=== PATIENT | female | born 1965 | race Caucasian/White ===

== ENCOUNTER 2020-03-09 23:46 | Emergency (ER) | payer SELFPAY ==
[2020-03-09 23:51] VITALS: BP 110/87; PULSE 106; RESP 18; TEMP 36.6; O2SAT 97; BMI 18.8
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
[2020-03-10 00:43] VITALS: BP 128/77; PULSE 96; RESP 18; O2SAT 98
[2020-03-10 02:07] VITALS: BP 111/77; PULSE 96; RESP 18; O2SAT 98
== END 2020-03-10 02:09 | disposition home or self-care (01) ==
PROVIDERS: Emergency Provider Physician Assistant
DX: M54.5 Low back pain (principal); S16.1XXA Strain of muscle, fascia and tendon at neck level, initial encounter; M25.552 Pain in left hip; V89.2XXA Person injured in unspecified motor-vehicle accident, traffic, initial encounter
CPT/HCPCS: 12345; 72125; 72131; 73502; 99282; 99283

== ENCOUNTER → 2021-05-14 11:29 | Outpatient (BNVA) | payer SELFPAY | PROVIDERS: Visit Provider Nurse Practitioner Family | DX: Z20.822 Contact with and (suspected) exposure to COVID-19 (principal) | CPT/HCPCS: 87635 ==

== ENCOUNTER → 2021-06-03 16:13 | Outpatient (BNVA) | payer SELFPAY | PROVIDERS: Visit Provider Registered Nurse Neonatal Intensive Care | DX: N39.0 Urinary tract infection, site not specified (principal); K21.9 Gastro-esophageal reflux disease without esophagitis | CPT/HCPCS: 81000 ==

== ENCOUNTER 2021-11-29 21:37 | Emergency (ER) | payer MEDICAID, SELFPAY ==
--- NOTE | 2021-11-29 21:39 | XRR_ITS ---
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 Views: 2 or more views. COMPARISON: CT cervical spin wo con* [id number] 03/10/2020 1:26 AM FINDINGS: Bones/joints: Normal. Soft tissues: Normal. XR/XR shoulder RT min 2V* [id number] IMPRESSION: No acute findings.
[2021-11-29 21:54] VITALS: BP 142/91; PULSE 92; RESP 20; TEMP 37.1; O2SAT 97; BMI 21.0
--- NOTE | 2021-11-29 22:10 | ED_ITS ---
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 States that painful over her trapezius muscles states that painful to lift or move that arm. States it is improved with rest states pain is currently 5 out of 10 denies any specific injury or fall. Associated symptoms: Deny chest pain, fever(s) or rash Review of Systems Const: Denies: fever(s), chills, body aches or change in appetite Eyes: Denies: blurry vision or eye discomfort ENMT: Denies: throat pain or dental pain Card: Denies: chest pain Resp: Denies: dyspnea GI: Denies: abdominal pain, nausea, vomiting or diarrhea : Denies: dysuria Musc: Reports: extremity pain Skin/Breast: Denies: rash Neuro: Denies: headache(s) Psych: Denies: depression Will/Lymph: Denies: easy bruising All/Imm: Denies: urticaria PFSH ED PFSH: Medical History No pertinent past medical history Social History Smoking and tobacco status: current every day smoker cigarettes Physical Exam Const: COMMON NORMALS: no acute distress, patient oriented x3 and healthy appearing HENMT: COMMON NORMALS: normocephalic and atraumatic HEAD & SCALP: normocephalic and atraumatic Eye: COMMON NORMALS: Equal, round and reactive pupils present and EOMs intact bilaterally PUPIL: Yes Equal, round and reactive pupils present Neck/C-Spine: COMMON NORMALS: full ROM and supple Chest: COMMONS NORMALS: normal inspection of the chest and normal palpation of entire chest wall Resp: COMMON NORMALS: normal respiratory effort, No retractions, No use of accessory muscles and clear to auscultation bilaterally AUSCULTATION: clear to auscultation bilaterally Cardio: COMMON NORMALS: regular rate, regular rhythm and No murmurs present (Cardio) RATE: regular rate RHYTHM: regular rhythm GI: COMMON NORMALS: Normal to inspection, nondistended, normoactive bowel sounds present, Soft to palpation, non-tender and no masses PALPATION: Yes Soft to palpation Extremity: COMMON NORMALS: normal to inspection and full ROM NARRATIVE EXTREMITY EXAM: Tenderness over right trapezius and rhomboid she has pain with range of motion to her right arm distal pulses sensation intact Neuro: COMMON NORMALS: patient oriented x3, moves all extremities and no focal motor deficits Psych: COMMON NORMALS: mental status grossly normal, Normal thought process present and cooperative THOUGHT PROCESS: Normal thought process present Skin: COMMON NORMALS: no rashes or lesions noted and no wounds GENERAL SKIN EXAM: no rashes or lesions noted Course Vital Signs: Vital signs: Vital Signs Temperature 98.8 F 11/29/21 21:54 Pulse Rate 92 11/29/21 21:54 Respiratory Rate 20 H 11/29/21 21:54 Blood Pressure 142/91 11/29/21 21:54 Pulse Oximetry 97 11/29/21 21:54 MDM - Extremity (Nontraumatic) Medical Decision Making Patient presents with right shoulder pain she has tenderness over her trapezius and rhomboid muscles likely a muscle strain from lifting she is have no heavy lifting for a week we will place her on Naprosyn and Robaxin she is to ice as well. She is stable for discharge return if worsening. Discharge Plan Discharge Patient Disposition: Home Clinical Impression: Acute pain of right shoulder Condition: Stable Prescriptions: New methocarbamol 750 mg tablet 750 mg PO Q6H PRN (Reason: spasms) Qty: 20 0RF Naprosyn 500 mg tablet 500 mg PO BID PRN (Reason: pain) Qty: 20 0RF No Action nitrofurantoin monohyd/m-cryst [Macrobid] 100 mg capsule 100 mg PO BID 5 Days Qty: 10 0RF Rx Instructions: must administer with a meal/food Discharge Orders: Discharge ED (Routine); Ordered 11/29/21 Ordered By: Devin Maki Discharge Diet: Advance as tolerated Discharge Activity: Resume usual activity Patient Instructions: Shoulder Pain (ED) Coding Level of Care Code ED [employer] Guide for Libra Lange
[2021-11-29] MEDS: HYDROcodone-acetaminophen 7.5-325 mg Tablet 1 TAB PO (22:13)
[2021-11-29 22:20] VITALS: RESP 16
== END 2021-11-29 22:20 | disposition home or self-care (01) ==
PROVIDERS: Emergency Provider Emergency Medicine
DX: M25.511 Pain in right shoulder (principal); F17.210 Nicotine dependence, cigarettes, uncomplicated
CPT/HCPCS: 73030; 99283

== ENCOUNTER 2022-06-18 13:46 | Emergency (ER) | payer MEDICAID, SELFPAY ==
[2022-06-18 14:00] VITALS: BP 147/90; PULSE 88; RESP 18; TEMP 36.8; O2SAT 97; BMI 19.3
--- NOTE | 2022-06-18 14:24 | ED_ITS ---
HPI - Abdominal Pain General: Chief Complaint: Abdominal Pain Stated Complaint: Abd/Back Pain Time Seen by Provider: 06/18/22 14:09 Source: patient Mode of arrival: ambulatory History of Present Illness: 56-year-old female presents to the emergency room with complaint of left lower quadrant abdominal pain she describes it as burning and radiating into her buttock. She has vomited once or twice she denies any medic easier melena she denies any diarrhea. She is complaining of a temp up to 101 102 yesterday based off of the forehead thermal scanner. She has previously had a tubal ligation no other abdominal surgeries. No dysuria urgency or frequency or hematuria. MD elicited complaint: abdominal pain Pertinent past history: none Onset (ago): day(s) Pain Consistency: constant Location: LLQ Severity: moderate Quality: cramping Radiation: none Exacerbating factors: nothing Relieving factors: nothing Associated Symptoms: Reports GI cramping, nausea and vomiting; Denies belching, bloating, change in bowel habits, change in stool character, chills, coffee ground emesis, constipation, diarrhea, dyspepsia, dysuria, excessive flatus, fever(s), heartburn, hematochezia, hematuria, hematemesis, fecal incontinence, loose stools, melena, poor appetite and syncope Review of Systems Const: Denies: fever(s), chills, fatigue or malaise ENMT: Denies: throat pain, ear or mastoid pain, nasal discharge or nasal congestion Card: Denies: chest pain, palpitations, irregular heart rhythm or syncope Resp: Denies: dyspnea, productive cough or non-productive cough GI: Reports: abdominal pain, nausea, vomiting and GI cramping; Denies: hematemesis, coffee ground emesis, heartburn, diarrhea, constipation, bloating, belching, excessive flatus, fecal incontinence, change in bowel habits, change in stool character, hematochezia or melena : Denies: flank pain, difficulty voiding, dysuria, urinary frequency, urinary urgency or hematuria Skin/Breast: Denies: rash or pruritus PFS ED PFSH: Medical History (Updated 06/18/22 @ 16:39 by Conrad Brownlee DO) No pertinent past medical history Surgical History (Updated 06/18/22 @ 14:41 by Conrad Brownlee DO) H/O tubal ligation Social History Smoking and tobacco status: current every day smoker cigarettes Physical Exam Const: GENERAL APPEARANCE: cooperative and comfortable ORIENTATION/CONSCIOUSNESS: Yes awake, Yes oriented to person, Yes oriented to place and Yes oriented to time HENMT: COMMON NORMALS: normocephalic, atraumatic and hearing grossly normal bilaterally HEAD & SCALP: normocephalic and atraumatic Resp: COMMON NORMALS: normal respiratory effort, No retractions, No use of accessory muscles and clear to auscultation bilaterally AUSCULTATION: clear to auscultation bilaterally Cardio: COMMON NORMALS: regular rate, regular rhythm and No murmurs present (Cardio) RATE: regular rate RHYTHM: regular rhythm GI: COMMON NORMALS: Soft to palpation and No hepatosplenomegaly present AUSCULTATION: Yes normoactive bowel sounds PALPATION: Yes Soft to palpation, No Tenderness to palpation present (GI), No Guarding due to palpation present (GI) and Yes No hepatosplenomegaly present OTHER: Cutaneous hyperesthesia in the left lower quadrant. Extremity: COMMON NORMALS: normal to inspection, capillary refill normal, no clubbing, cyanosis or edema, no calf tenderness and no pedal edema Neuro: SENSORIUM/ORIENTATION: Yes oriented to person, Yes oriented to place a nd Yes oriented to time OTHER: Straight leg raising equivocal on the left. Skin: COMMON NORMALS: no rashes or lesions noted GENERAL SKIN EXAM: no rashes or lesions noted Course Vital Signs: Vital signs: Vital Signs Temperature 98.3 F 06/18/22 15:22 Pulse Rate 88 06/18/22 15:22 Respiratory Rate 18 06/18/22 15:22 Blood Pressure 147/90 06/18/22 15:22 Pulse Oximetry 97 06/18/22 15:22 Oxygen Delivery Me thod 06/18/22 15:22 MDM - Abdominal Pain Medical Decision Making Patient is a mild cystitis with a normal white count. She does not really have any symptoms of diverticulitis. She does have cystitis but I do not believe is causing the degree of symptoms she is describing. Suspect that she has some sciatica which is causing the burning sensation radiating into the buttock and down the leg and across the lower abdomen and into the groin region. We will start her on prednisone taper diclofenac and Anjel have her follow-up with her primary care doctor. If symptoms or not improving she may need further evaluation. Medical Records I reviewed the patient's medical records. Lab Data I reviewed the patient's lab results. : 06/18/22 14:35 06/18/22 14:35 Labs/Radiology: Laboratory Results WBC 9.4 10^3/uL (4.0-10.0) 06/18/22 14:35 RBC 4.97 10^6/uL (4.1-5.3) 06/18/22 14:35 Hgb 15.3 g/dL (11.5-15.3) 06/18/22 14:35 Hct 46.2 % (37.0-47.0) 06/18/22 14:35 MCV 93.0 fl (81-99) 06/18/22 14:35 MCH 30.8 pg (28.0-34.0) 06/18/22 14:35 MCHC 33.1 g/dL (30.0-36.0) 06/18/22 14:35 RDW 12.3 % (12.1-15.1) 06/18/22 14:35 Plt Count 268 10^3/cmm (130-400) 06/18/22 14:35 MPV 9.6 fL (7.4-10.4) 06/18/22 14:35 Neut % (Auto) 68.2 % 06/18/22 14:35 Lymph % (Auto) 24.5 % 06/18/22 14:35 Schley % (Auto) 4.5 % 06/18/22 14:35 Eos % (Auto) 1.3 % 06/18/22 14:35 Baso % (Auto) 1.1 % 06/18/22 14:35 Neut # (Auto) 6.39 10^3/uL (1.8-7.7) 06/18/22 14:35 Lymph # (Auto) 2.3 10^3/uL (0.8-4.8) 06/18/22 14:35 Schley # (Auto) 0.4 10^3/uL (0.2-0.9) 06/18/22 14:35 Eos # (Auto) 0.1 10^3/uL (0.0-0.8) 06/18/22 14:35 Baso # (Auto) 0.1 10^3/uL (0.0-0.1) 06/18/22 14:35 Nucleated RBC % (auto) 0 % 06/18/22 14:35 Nucleated RBCs # 0.0 /100WBC 06/18/22 14:35 Sodium 141 mmol/L (136-145) 06/18/22 14:35 Potassium 3.8 mmol/L (3.5-5.1) 06/18/22 14:35 Chloride 104 mmol/L (98-107) 06/18/22 14:35 Carbon Dioxide 26 mmol/L (22-29) 06/18/22 14:35 Anion Gap 14.8 (5-19) 06/18/22 14:35 BUN 16 mg/dL (6-20) 06/18/22 14:35 Creatinine 0.6 mg/dL (0.5-0.9) 06/18/22 14:35 GFR Calculation 103.0 mL/min (90-130) 06/18/22 14:35 Glucose 89 mg/dL (65-115) 06/18/22 14:35 Calculated Osmolality 293 mOsm/kg (285-295) 06/18/22 14:35 Calcium 9.7 mg/dL (8.5-10.5) 06/18/22 14:35 Total Bilirubin 0.2 mg/dL (0.15-1.2) 06/18/22 14:35 AST 14 U/L (0-32) 06/18/22 14:35 ALT 9 U/L (0-33) 06/18/22 14:35 Alkaline Phosphatase 80 U/L (35-105) 06/18/22 14:35 Total Protein 7.3 g/dL (6.6-8.7) 06/18/22 14:35 Albumin 4.7 g/dL (3.5-5.2) 06/18/22 14:35 Globulin 2.6 g/dL (1.3-4.6) 06/18/22 14:35 Lipase 23 U/L (13-60) 06/18/22 14:35 Urine Color Yellow (Yellow) 06/18/22 14:39 Urine Appearance Clear (CLEAR) 06/18/22 14:39 Urine pH 5 (5-7) 06/18/22 14:39 Ur Specific [place] 1.015 (1.005-1.030) 06/18/22 14:39 Urine Protein Neg (Negative) 06/18/22 14:39 Urine Glucose (UA) Norm (Normal) 06/18/22 14:39 Urine Ketones Negative (Negative) 06/18/22 14:39 Urine Blood 2+ (Negative) H 06/18/22 14:39 Urine Nitrate Negative (Negative) 06/18/22 14:39 Urine Bilirubin Neg (Negative) 06/18/22 14:39 Urine Urobilinogen Neg mg/dL (Negative) 06/18/22 14:39 Ur Leukocyte Esterase 1+ (Negative) H 06/18/22 14:39 Urine RBC 0-4 /hpf (0-2) H 06/18/22 14:39 Urine WBC 5-10 /hpf (0-5) H 06/18/22 14:39 Ur Squamous Epith Cells 0-4 /hpf (0-5) H 06/18/22 14:39 Amorphous Sediment Not Reportable 06/18/22 14:39 Urine Bacteria 2+ /hpf (NONE) H 06/18/22 14:39 Urine Mucus 2+ /hpf 06/18/22 14:39 Discharge Plan Discharge Patient Disposition: Home Clinical Impression: Sciatica, Cystitis Condition: Stable Prescriptions: New prednisone 20 mg tablet 20 mg PO TID Qty: 15 0RF Rx Instructions: 1 p.o. 3 times daily x3 days, 1 p.o. twice daily x2 days, 1 p.o. daily x2 days diclofenac sodium 75 mg tablet,delayed release (DR/EC) 75 mg PO Q12H PRN (Reason: pain) Qty: 20 0RF Lyrica 75 mg capsule 75 mg PO BID Qty: 60 0RF Bactrim DS 800-160 mg tablet 1 tab PO BID 5 Days Qty: 10 0RF No Action BC Pain Relief 845-65 mg Powder In Packet 1 ea PO Q6H Discharge Orders: Discharge ED (Routine); Ordered 06/18/22 Ordered By: Conrad Brownlee Discharge Diet: Usual diet Discharge Activity: Increase activity as tolerated Patient Instructions: Opioid Safety, Pain Management Activity Restrictions/Additional Instructions: Follow-up with your primary care doctor as soon as you are able. If symptoms or not improving you may need further evaluation. Coding Level of Care Code ED Retail Brand Ambassador for Chg Fwd Exam Detailed
[2022-06-18 14:40] LABS: Basophils # 0.1 10^3/uL (0.0-0.1); Basophils % 1.1 %; Eosinophils # 0.1 10^3/uL (0.0-0.8); Eosinophils % 1.3 %; Hematocrit 46.2 % (37.0-47.0); Hemoglobin 15.3 g/dL (11.5-15.3); Lymphocytes # 2.3 10^3/uL (0.8-4.8); Lymphocytes % 24.5 %; Mean Corpuscular HGB Conc 33.1 g/dL (30.0-36.0); Mean Corpuscular Hemoglobin 30.8 pg (28.0-34.0); Mean Platelet Volume 9.6 fL (7.4-10.4); Monocytes # 0.4 10^3/uL (0.2-0.9); Monocytes % 4.5 %; Neutrophils # 6.39 10^3/uL (1.8-7.7); Neutrophils % 68.2 %; Nucleated Red Blood Cells % 0 %; Platelet Count 268 10^3/cmm (130-400); Red Blood Count 4.97 10^6/uL (4.1-5.3); Red Cell Distribution Width 12.3 % (12.1-15.1); White Blood Count 9.4 10^3/uL (4.0-10.0)
[2022-06-18] MEDS: dexamethasone 4 mg Tablet 10 MG PO (14:58)
[2022-06-18] MEDS: ketorolac 30 mg/mL INJ IVP (15:01)
[2022-06-18] MEDS: orphenadrine 30 mg/mL Inj 2 mL 60 MG IVP (15:02)
[2022-06-18 15:05] LABS: Alanine Aminotransferase 9 U/L (0-33); Albumin Level 4.7 g/dL (3.5-5.2); Alkaline Phosphatase 80 U/L (35-105); Anion Gap 14.8 (5-19); Aspartate Amino Transferase 14 U/L (0-32); Blood Urea Nitrogen 16 mg/dL (6-20); Calcium 9.7 mg/dL (8.5-10.5); Carbon Dioxide 26 mmol/L (22-29); Chloride 104 mmol/L (98-107); Globulin 2.6 g/dL (1.3-4.6); Glucose 89 mg/dL (65-115); Lipase 23 U/L (13-60); Osmolality Calculated 293 mOsm/kg (285-295); Potassium 3.8 mmol/L (3.5-5.1); Sodium 141 mmol/L (136-145); Total Bilirubin 0.2 mg/dL (0.15-1.2); Total Protein 7.3 g/dL (6.6-8.7)
[2022-06-18 15:22] VITALS: BP 147/90; PULSE 88; RESP 18; TEMP 36.8; O2SAT 97
[2022-06-18 16:12] LABS: Bilirubin Urine Neg (Negative); Blood Urine 2+ (Negative); Glucose Urine UA Norm (Normal); Ketones Urine Negative (Negative); Nitrate Urine Negative (Negative); Protein Urine Neg (Negative); Specific Gravity, Urine 1.015 (1.005-1.030); Urine Appearance Clear (CLEAR); Urine Color Yellow (Yellow); pH Urine 5 (5-7)
[2022-06-18 16:13] LABS: Add Urine Microscopic? YES; Leukocyte Esterase Urine 1+ (Negative); Urobilinogen Urine Neg (Negative)
[2022-06-18 16:29] LABS: RBC Urine 0-4 /hpf (0-2)
[2022-06-18 16:30] LABS: Add Urine Culture? Yes; Bacteria Urine 2+ /hpf; Mucus Urine 2+ /hpf; Squamous Epithelial Cell Urine 0-4 /hpf (0-5)
[2022-06-18 16:51] VITALS: BP 147/90; PULSE 88; RESP 18; TEMP 36.8; O2SAT 97
== END 2022-06-18 16:52 | disposition home or self-care (01) ==
PROVIDERS: Emergency Medicine; Emergency Provider Family Medicine
DX: N30.90 Cystitis, unspecified without hematuria (principal); M54.30 Sciatica, unspecified side; F17.210 Nicotine dependence, cigarettes, uncomplicated
CPT/HCPCS: 80053; 81001; 83690; 85025; 87077; 87086; 87186; 96374; 96375; 99284; J1885; J2360; J8540

== ENCOUNTER 2022-06-18 18:54 | Emergency (ER) | payer MEDICAID, SELFPAY ==
[2022-06-18 18:59] VITALS: BP 160/91; PULSE 115; RESP 30; O2SAT 98; BMI 19.9
--- NOTE | 2022-06-18 19:23 | CTR_ITS ---
PROCEDURE INFORMATION: Exam: CT Head Without Contrast Exam date and time: 06/18/2022 7:59 PM Age: 56 years old Clinical indication: Syncope and collapse TECHNIQUE: Imaging protocol: Computed tomography of the head without contrast. Radiation optimization: All CT scans at this facility use at least one of these dose optimization techniques: automated exposure control; mA and/or kV adjustment per patient size (includes targeted exams where dose is matched to clinical indication); or iterative reconstruction. COMPARISON: CT head wo con* [id number] 11/17/2016 5:31 AM RADIATION DOSE METRICS: Total DLP (mGy-cm): 1072.14 FINDINGS: Brain: Normal. No hemorrhage. Unremarkable white matter. No mass effect. Cerebral ventricles: No ventriculomegaly. Paranasal sinuses: Visualized sinuses are unremarkable. No fluid levels. Mastoid air cells: Visualized mastoid air cells are well aerated. Bones/joints: Unremarkable. No acute fracture. Soft tissues: Unremarkable. CT/CT head wo con* [id number] IMPRESSION: No acute intracranial abnormality.
--- NOTE | 2022-06-18 19:23 | XRR_ITS ---
PROCEDURE INFORMATION: Exam: XR Chest Exam date and time: 06/18/2022 7:33 PM Age: 56 years old Clinical indication: Other: Syncope; Additional info: Syncope and left leg pain TECHNIQUE: Imaging protocol: Radiologic exam of the chest. Views: 1 view. COMPARISON: CR XR shoulder RT min 2V* [id number] 11/29/2021 9:54 PM FINDINGS: Lungs: See Heart/Mediastinum finding. Pleural spaces: Unremarkable. No pleural effusion. No pneumothorax. Heart/Mediastinum: Calcified mediastinal lymph nodes along with a left mid lung field calcified granuloma. Bones/joints: Unremarkable. XR/XR chest 1V portable [id number] IMPRESSION: Negative for infiltrate
--- NOTE | 2022-06-18 19:23 | CTR_ITS ---
PROCEDURE INFORMATION: Exam: CT Lumbar Spine Without Contrast Exam date and time: 06/18/2022 8:06 PM Age: 56 years old Clinical indication: Low back pain; Additional info: Lumbar radiculopathy, llq pain TECHNIQUE: Imaging protocol: Computed tomography of the lumbar spine without contrast. Radiation optimization: All CT scans at this facility use at least one of these dose optimization techniques: automated exposure control; mA and/or kV adjustment per patient size (includes targeted exams where dose is matched to clinical indication); or iterative reconstruction. COMPARISON: CT lumbar spine wo con* [id number] 03/10/2020 1:31 AM RADIATION DOSE METRICS: Total DLP (mGy-cm): 365.22 FINDINGS: Bones/joints: See L4-L5 finding. L1-L2: No significant disc protrusion. No severe spinal canal stenosis. No significant neural foraminal narrowing. L2-L3: No significant disc protrusion. No severe spinal canal stenosis. No significant neural foraminal narrowing. L3-L4: No significant disc protrusion. No severe spinal canal stenosis. No significant neural foraminal narrowing. L4-L5: L4-L5 broad-based disc bulge with mild spinal canal and [id number] bilateral foraminal narrowing, similar to prior exam. L5-S1: No significant disc protrusion. No severe spinal canal stenosis. No significant neural foraminal narrowing. Lungs: Bibasilar atelectasis. Gallbladder and bile ducts: Cholelithiasis. Soft tissues: Sigmoid colon diverticulosis with a small amount of edema seen about a diverticula in the mid sigmoid colon, series 5, image 151, please correlate for possible diverticulitis. CT/CT lumbar spine wo con* [id number] IMPRESSION: 1. L4-L5 broad-based disc bulge with mild spinal canal and rqhh-[id number] bilateral foraminal narrowing, similar to prior exam. 2. Cholelithiasis. 3. Bibasilar atelectasis. 4. Sigmoid colon diverticulosis with a small amount of edema seen about a diverticula in the mid sigmoid colon, series 5, image 151, please correlate for possible diverticulitis.
--- NOTE | 2022-06-18 19:23 | CTR_ITS ---
PROCEDURE INFORMATION: Exam: CT Abdomen And Pelvis With Contrast Exam date and time: 06/18/2022 8:09 PM Age: 56 years old Clinical indication: Abdominal pain; Additional info: Llq pain TECHNIQUE: Imaging protocol: Computed tomography of the abdomen and pelvis with contrast. Radiation optimization: All CT scans at this facility use at least one of these dose optimization techniques: automated exposure control; mA and/or kV adjustment per patient size (includes targeted exams where dose is matched to clinical indication); or iterative reconstruction. Contrast material: OMNIPAQUE 350; Contrast volume: 100 ml; Contrast route: INTRAVENOUS (IV); COMPARISON: CR XR hip LT 2-3V wo/w pel* [id number] 03/10/2020 1:14 AM RADIATION DOSE METRICS: Total DLP (mGy-cm): 304.29 FINDINGS: Liver: Normal. No mass. Gallbladder and bile ducts: Cholelithiasis. Pancreas: Normal. No ductal dilation. Spleen: Normal. No splenomegaly. Adrenal glands: Normal. No mass. Kidneys and ureters: Kidneys appears somewhat heterogeneous bilaterally, likely due to contrast bolus timing, please correlate for possible pyelonephritis. Stomach and bowel: Minimal edema seen about the mid sigmoid colon diverticula, suggestive of a mild diverticulitis in the appropriate clinical setting Appendix: No evidence of appendicitis. Intraperitoneal space: Unremarkable. No free air. No significant fluid collection. Vasculature: Unremarkable. No abdominal aortic aneurysm. Lymph nodes: Unremarkable. No enlarged lymph nodes. Urinary bladder: Unremarkable as visualized. Reproductive: Unremarkable as visualized. Bones/joints: Unremarkable. No acute fracture. Soft tissues: Unremarkable. CT/CT abdomen pelvis w con* [id number] IMPRESSION: 1. Minimal edema seen about the mid sigmoid colon diverticula, suggestive of a mild diverticulitis in the appropriate clinical setting 2. Kidneys appears somewhat heterogeneous bilaterally, likely due to contrast bolus timing, please correlate for possible pyelonephritis. 3. Cholelithiasis.
--- NOTE | 2022-06-18 19:27 | ECG_ITS ---
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 Measurements Intervals [place] Rate: 112 P: 68 WV: 160 QRS: 77 QRSD: 72 T: 63 QT: 337 QTc: 461 Interpretive Statements SINUS TACHYCARDIA POSSIBLE LEFT ATRIAL ENLARGEMENT [-0.1mV P-WAVE IN V1/V2] MODERATE ST DEPRESSION [0.05+ mV ST DEPRESSION] No previous ECG available for comparison Electronically Signed On 06-19-2022 10:53:02 CDT by Angelic Cardoso M.D. [id number] f
--- NOTE | 2022-06-18 19:28 | W.ED.SYNCOPE ---
HPI - Syncope General: Chief Complaint: Syncope Stated Complaint: syncope, left leg pain Time Seen by Provider: 06/18/22 19:04 Source: patient and family History of Present Illness: 56-year-old female was here earlier with left lower quadrant pain diagnosed with cystitis. She presents for 2-3 episodes of syncope at home. Daughter notes that she went unresponsive for a few minutes at home. Patient does not remember that event. No seizure activity. She is awake and alert now. She still complaining of significant left lower quadrant pain and low back pain. Low back pain is radicular down the posterior left lower extremity. No weakness. No numbness to the groin MD complaint: loss of consciousness Onset (ago): minute(s) -: minutes(s) Prodromal symptoms: none Associated symptoms: Reports abdominal pain, lightheadedness, nausea and weakness (Generalized); Deny chest pain, fever(s), headache(s) or short of breath Treatments prior to arrival: none Review of Systems Const: Denies: fever(s) Card: Reports: lightheadedness; Denies: chest pain Resp: Denies: dyspnea GI: Reports: abdominal pain, nausea and vomiting (Yesterday) Neuro: Denies: headache(s) PFSH ED PFSH: Medical History No pertinent past medical history Surgical History H/O tubal ligation Social History Smoking and tobacco status: current every day smoker cigarettes Physical Exam Const: COMMON NORMALS: no acute distress GENERAL APPEARANCE: cooperative, ill appearing and frail appearing NUTRITIONAL APPEARANCE: thin HENMT: COMMON NORMALS: normocephalic and Normal external nose present HEAD & SCALP: normocephalic FACE & SINUS: normal facial exam and face symmetric NOSE: Normal external nose present Eye: COMMON NORMALS: Equal, round and reactive pupils present and EOMs intact bilaterally PUPIL: Yes Equal, round and reactive pupils present Neck/C-Spine: GENERAL: Yes trachea midline Chest: CHEST: Yes Symmetrical chest wall rise Resp: COMMON NORMALS: normal respiratory effort, No retractions, No use of accessory muscles and clear to auscultation bilaterally AUSCULTATION: clear to auscultation bilaterally Cardio: COMMON NORMALS: regular rate and regular rhythm RATE: regular rate RHYTHM: regular rhythm GI: COMMON NORMALS: Normal to inspection, nondistended, normoactive bowel sounds present and Soft to palpation PALPATION: Yes Soft to palpation and Yes Tenderness to palpation present (GI) Details: LLQ : BLADDER/KIDNEY EXAM: Yes CVA tenderness on the left Back/Pelvis: GENERAL BACK: Yes CVA tenderness Extremity: COMMON NORMALS: no pedal edema Neuro: ÁNGELA COMA SCALE: document GCS findings Ángela coma scale eye opening: Spontaneous Ángela coma scale verbal response: Orientated [place] coma scale motor response: Obey commands [place] coma scale total score: 15 SENSORY EXAM: Yes extremities (intact) Psych: COMMON NORMALS: speech normal SPEECH: Yes normal speech Skin: COMMON NORMALS: no rashes or lesions noted GENERAL SKIN EXAM: no rashes or lesions noted Course Vital Signs: Vital signs: Vital Signs Pulse Rate 97 06/18/22 21:57 Respiratory Rate 18 06/18/22 21:57 Blood Pressure 131/90 06/18/22 21:57 Pulse Oximetry 97 06/18/22 21:57 Oxygen Delivery Me thod 06/18/22 18:59 MDM - Syncope Medical Decision Making White blood cell count is 7.4. Hemoglobin is 15.5. BMP is unremarkable. CT of the abdomen pelvis shows mild diverticulitis of the left lower quadrant responsible for pain. CT of the head is negative. Cardiac work-up is negative. I believe she likely has syncopal episode due to the amount of pain she was in. She has not been vomiting. Counseled family on diagnosis. She will go home on antibiotics to cover diverticulitis, pain and nausea medication. She knows to return if worsening. Lab Data : 06/18/22 18:41 06/18/22 18:41 Radiology Impressions Abdomen/Pelvis CT 06/18/22 19:23 IMPRESSION: 1. Minimal edema seen about the mid sigmoid colon diverticula, suggestive of a mild diverticulitis in the appropriate clinical setting 2. Kidneys appears somewhat heterogeneous bilaterally, likely due to contrast bolus timing, please correlate for possible pyelonephritis. 3. Cholelithiasis. Chest X-Ray 06/18/22 19:23 IMPRESSION: Negative for infiltrate Head CT 06/18/22 19:23 IMPRESSION: No acute intracranial abnormality. Lumbar Spine CT 06/18/22 19:23 IMPRESSION: 1. L4-L5 broad-based disc bulge with mild spinal canal and awss-[id number] bilateral foraminal narrowing, similar to prior exam. 2. Cholelithiasis. 3. Bibasilar atelectasis. 4. Sigmoid colon diverticulosis with a small amount of edema seen about a diverticula in the mid sigmoid colon, series 5, image 151, please correlate for possible diverticulitis. Laboratory Results WBC 7.4 10^3/uL (4.0-10.0) 06/18/22 18:41 RBC 5.11 10^6/uL (4.1-5.3) 06/18/22 18:41 Hgb 15.5 g/dL (11.5-15.3) H 06/18/22 18:41 Hct 46.6 % (37.0-47.0) 06/18/22 18:41 MCV 91.2 fl (81-99) 06/18/22 18:41 MCH 30.3 pg (28.0-34.0) 06/18/22 18:41 MCHC 33.3 g/dL (30.0-36.0) 06/18/22 18:41 RDW 12.2 % (12.1-15.1) 06/18/22 18:41 Plt Count 282 10^3/cmm (130-400) 06/18/22 18:41 MPV 10.4 fL (7.4-10.4) 06/18/22 18:41 Neut % (Auto) 83.4 % 06/18/22 18:41 Lymph % (Auto) 15.0 % 06/18/22 18:41 [place] % (Auto) 0.7 % 06/18/22 18:41 Eos % (Auto) 0.1 % 06/18/22 18:41 Baso % (Auto) 0.5 % 06/18/22 18:41 Neut # (Auto) 6.16 10^3/uL (1.8-7.7) 06/18/22 18:41 Lymph # (Auto) 1.1 10^3/uL (0.8-4.8) 06/18/22 18:41 [place] # (Auto) 0.1 10^3/uL (0.2-0.9) L 06/18/22 18:41 Eos # (Auto) 0.0 10^3/uL (0.0-0.8) 06/18/22 18:41 Baso # (Auto) 0.0 10^3/uL (0.0-0.1) 06/18/22 18:41 Nucleated RBC % (auto) 0 % 06/18/22 18:41 Nucleated RBCs # 0.0 /100WBC 06/18/22 18:41 Sodium 139 mmol/L (136-145) 06/18/22 18:41 Potassium 3.6 mmol/L (3.5-5.1) 06/18/22 18:41 Chloride 103 mmol/L (98-107) 06/18/22 18:41 Carbon Dioxide 22 mmol/L (22-29) 06/18/22 18:41 Anion Gap 17.6 (5-19) 06/18/22 18:41 BUN 16 mg/dL (6-20) 06/18/22 18:41 Creatinine 0.7 mg/dL (0.5-0.9) 06/18/22 18:41 GFR Calculation 86.2 mL/min (90-130) L 06/18/22 18:41 Glucose 200 mg/dL (65-115) H 06/18/22 18:41 Calculated Osmolality 295 mOsm/kg (285-295) 06/18/22 18:41 Calcium 10.0 mg/dL (8.5-10.5) 06/18/22 18:41 Magnesium 1.8 mg/dL (1.7-2.3) 06/18/22 18:41 Total Bilirubin 0.2 mg/dL (0.15-1.2) 06/18/22 18:41 AST 12 U/L (0-32) 06/18/22 18:41 ALT 7 U/L (0-33) 06/18/22 18:41 Alkaline Phosphatase 78 U/L (35-105) 06/18/22 18:41 Troponin T Baseline 6 ng/L (0-10) 06/18/22 18:41 Troponin T 120 Minute 6.00 ng/L (0-10) 06/18/22 20:25 Delta Troponin T 0 ABS# (0-10) 06/18/22 20:25 C-Reactive Protein 3.0 mg/L (0.0-4.9) 06/18/22 18:41 Total Protein 7.0 g/dL (6.6-8.7) 06/18/22 18:41 Albumin 4.6 g/dL (3.5-5.2) 06/18/22 18:41 Globulin 2.4 g/dL (1.3-4.6) 06/18/22 18:41 Urine Color Yellow (Yellow) 06/18/22 19:38 Urine Appearance Clear (CLEAR) 06/18/22 19:38 Urine pH 5 (5-7) 06/18/22 19:38 Ur Specific [place] 1.010 (1.005-1.030) 06/18/22 19:38 Urine Protein Neg (Negative) 06/18/22 19:38 Urine Glucose (UA) 1+ (Normal) H 06/18/22 19:38 Urine Ketones Negative (Negative) 06/18/22 19:38 Urine Blood 2+ (Negative) H 06/18/22 19:38 Urine Nitrate Negative (Negative) 06/18/22 19:38 Urine Bilirubin Neg (Negative) 06/18/22 19:38 Urine Urobilinogen Norm mg/dL (Negative) 06/18/22 19:38 Ur Leukocyte Esterase 1+ (Negative) H 06/18/22 19:38 Discharge Plan Discharge Patient Disposition: Home Clinical Impression: Diverticulitis, Acute left lumbar radiculopathy Condition: Stable Prescriptions: New oxycodone-acetaminophen 5-325 mg tablet 1 tab PO Q8H Qty: 10 0RF ciprofloxacin HCl 500 mg tablet 500 mg PO BID Qty: 14 0RF metronidazole 500 mg tablet 500 mg PO TID Qty: 21 0RF ondansetron 4 mg film 4 mg PO DAILY PRN (Reason: nausea and vomiting) Qty: 10 0RF Discontinued BC Pain Relief 845-65 mg Powder In Packet 1 ea PO Q6H prednisone 20 mg tablet 20 mg PO TID Qty: 15 0RF Rx Instructions: 1 p.o. 3 times daily x3 days, 1 p.o. twice daily x2 days, 1 p.o. daily x2 days diclofenac sodium 75 mg tablet,delayed release (DR/EC) 75 mg PO Q12H PRN (Reason: pain) Qty: 20 0RF sulfamethoxazole-trimethoprim [Bactrim DS] 800-160 mg tablet 1 tab PO BID 5 Days Qty: 10 0RF No Action Lyrica 75 mg capsule 75 mg PO BID Qty: 60 0RF Discharge Orders: Discharge ED (Routine); Ordered 06/18/22 Ordered By: Darshan Concepcion Discharge Diet: Clear Liquid Discharge Activity: Increase activity as tolerated Patient Instructions: Opioid Safety, Pain Management Activity Restrictions/Additional Instructions: Follow a clear liquid diet for the next 36 hours, then increase as tolerated. Pain medication for significant pain. Take nausea medication scheduled for the next 24 hours to help you keep your medication down. Antibiotics as directed. Return for worsening pain despite treatment, fever greater than 100 despite 2-3 doses of antibiotics, vomiting liquids or medications, repeated episodes of syncope or passing out, any other concerning symptoms. 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
[2022-06-18] MEDS: sodium chloride 0.9% 1,000 ML 999 ML IV (19:45)
[2022-06-18 19:52] LABS: Basophils % 0.5 %; Eosinophils % 0.1 %; Hematocrit 46.6 % (37.0-47.0); Hemoglobin 15.5 g/dL (11.5-15.3); Lymphocytes # 1.1 10^3/uL (0.8-4.8); Mean Corpuscular HGB Conc 33.3 g/dL (30.0-36.0); Mean Corpuscular Hemoglobin 30.3 pg (28.0-34.0); Mean Corpuscular Volume 91.2 fl (81-99); Mean Platelet Volume 10.4 fL (7.4-10.4); Monocytes # 0.1 10^3/uL (0.2-0.9); Monocytes % 0.7 %; Neutrophils # 6.16 10^3/uL (1.8-7.7); Neutrophils % 83.4 %; Nucleated Red Blood Cells % 0 %; Platelet Count 282 10^3/cmm (130-400); Red Blood Count 5.11 10^6/uL (4.1-5.3); Red Cell Distribution Width 12.2 % (12.1-15.1); White Blood Count 7.4 10^3/uL (4.0-10.0)
[2022-06-18 19:56] VITALS: BP 129/74; PULSE 94; RESP 21; O2SAT 95
[2022-06-18 19:58] LABS: Charge for UA Resulting for Rev
[2022-06-18] MEDS: iohexol 350 mg/mL 500 mL Btl (per mL) IV (19:58)
[2022-06-18 20:07] LABS: Alanine Aminotransferase 7 U/L (0-33); Albumin Level 4.6 g/dL (3.5-5.2); Alkaline Phosphatase 78 U/L (35-105); Anion Gap 17.6 (5-19); Aspartate Amino Transferase 12 U/L (0-32); Blood Urea Nitrogen 16 mg/dL (6-20); Carbon Dioxide 22 mmol/L (22-29); Chloride 103 mmol/L (98-107); Creatinine Clr Calc Pharmacy 69.7616; Globulin 2.4 g/dL (1.3-4.6); Glomerular Filtration Rate 86.2 mL/min (90-130); Glucose 200 mg/dL (65-115); Magnesium 1.8 mg/dL (1.7-2.3); Osmolality Calculated 295 mOsm/kg (285-295); Potassium 3.6 mmol/L (3.5-5.1); Sodium 139 mmol/L (136-145); Total Bilirubin 0.2 mg/dL (0.15-1.2)
[2022-06-18 20:09] LABS: Troponin(5th) Baseline 6 ng/L (0-10)
[2022-06-18 20:11] LABS: Urine Appearance Clear (CLEAR); Urine Color Yellow (Yellow); pH Urine 5 (5-7)
[2022-06-18 20:12] LABS: Add Urine Microscopic? YES; Bilirubin Urine Neg (Negative); Blood Urine 2+ (Negative); Glucose Urine UA 1+ (Normal); Ketones Urine Negative (Negative); Leukocyte Esterase Urine 1+ (Negative); Nitrate Urine Negative (Negative); Protein Urine Neg (Negative); Urobilinogen Urine Norm (Negative)
[2022-06-18] MEDS: ondansetron 2 mg/ML SDV 2 mL 4 MG IVP (20:23)
[2022-06-18 20:24] VITALS: RESP 17
[2022-06-18] MEDS: morphine 4 mg/mL SDV 1 mL IVP (20:24)
[2022-06-18 20:59] LABS: Troponin 5 2HR Delta 0 ABS# (0-10)
[2022-06-18 21:00] VITALS: BP 131/90; PULSE 99; RESP 19; O2SAT 95
--- NOTE | 2022-06-18 21:27 | ECG_ITS ---
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 Measurements Intervals [place] Rate: 95 P: 61 IA: 162 QRS: 69 QRSD: 72 T: 58 QT: 360 QTc: 454 Interpretive Statements SINUS RHYTHM Compared to ECG 06/18/2022 19:03:23 Sinus tachycardia no longer present ST (T wave) deviation no longer present Electronically Signed On 06-19-2022 10:56:16 CDT by Angelic Cardoso M.D. [id number]
[2022-06-18] MEDS: metroNIDAZOLE 500 MG Tablet PO (21:37)
[2022-06-18] MEDS: ciprofloxacin 500 mg Tablet PO (21:37)
[2022-06-18 21:57] VITALS: BP 131/90; PULSE 97; RESP 18; O2SAT 97
== END 2022-06-18 22:03 | disposition home or self-care (01) ==
PROVIDERS: Emergency Provider Emergency Medicine
DX: K57.92 Diverticulitis of intestine, part unspecified, without perforation or abscess without bleeding (principal); M54.16 Radiculopathy, lumbar region; F17.210 Nicotine dependence, cigarettes, uncomplicated
CPT/HCPCS: 70450; 71045; 72131; 74177; 80053; 81003; 83735; 84484; 85025; 86140; 93005; 96374; 96375; 99285; J2270; J2405; J7030; Q9967

== ENCOUNTER → 2024-04-26 16:31 | Outpatient (BNVA) | payer MEDICAID, SELFPAY | DX: R11.2 Nausea with vomiting, unspecified (principal) | CPT/HCPCS: 87400; 87426 ==

== ENCOUNTER 2024-08-13 16:09 | Emergency (ER) | payer SELFPAY ==
[2024-08-13] VITALS (9 sets, daily range): BP systolic 122–185; BP diastolic 82–105; PULSE 80–100; RESP 16–17; TEMP 36.7; O2SAT 94–98
--- NOTE | 2024-08-13 16:32 | XRR_ITS ---
PROCEDURE INFORMATION: Exam: XR Chest Exam date and time: 08/13/2024 4:39 PM Age: 59 years old Clinical indication: Pain; Chest pressure; Additional info: Chest pain TECHNIQUE: Imaging protocol: Radiologic exam of the chest. Views: 1 view. COMPARISON: CR XR chest 1V portable [id number] 06/18/2022 7:33 PM FINDINGS: Lungs: Increased lung volumes. No lobar consolidation. Pulmonary granulomas. Pleural spaces: Unremarkable. No pleural effusion. No pneumothorax. Heart/Mediastinum: Bilateral hilar calcified lymph nodes. Bones/joints: Unremarkable. XR/XR chest 1V portable [id number] IMPRESSION: As above.
--- NOTE | 2024-08-13 16:32 | ECG_ITS ---
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 Measurements Intervals [place] Rate: 97 P: 67 [place]: 136 QRS: 70 QRSD: 74 T: 58 QT: 355 QTc: 453 Interpretive Statements SINUS RHYTHM POSSIBLE LEFT ATRIAL ENLARGEMENT [-0.1mV P-WAVE IN V1/V2] SEPTAL MYOCARDIAL INFARCTION , OF INDETERMINATE AGE [40+ ms Q WAVE IN V1/V2] Compared to ECG 06/18/2022 21:22:18 Myocardial infarct finding now present Electronically Signed On 08-14-2024 17:46:11 CHILDREN'S COUNSELOR by Néstor Murphy M.D. [id number]
--- NOTE | 2024-08-13 16:32 | ED_ITS ---
Documented by User: AYE Leonardo 08/13/24 16:47 HPI - General Adult 2 General: Chief complaint: Headache Stated complaint: headache Time Seen by Provider: 08/13/24 16:26 Source: patient Mode of arrival: ambulatory Limitations: no limitations History of Present Illness: Patient is a 59-year-old female presents to ED today for medical evaluation. Patient states earlier today she began developing a headache. She states she took BC powder to try to help but it did not. Patient tells me she has no history of headaches although later tells me that she takes BC powder twice daily due to headaches. She states at some point today, when she began noticing her headache, she took her blood pressure and it was elevated with systolics up to 160s and diastolics in the low 100s. She has no history of hypertension. She arrives with a blood pressure 169/92 but later during my examination repeat blood pressure was 185/105. She states at some point today she developed a small amount of mid chest pain with radiation into the right arm. This is not present at time of my examination. She has no known history of cardiac disease. She reports she feels weak and shaky. She does not take any prescription medication. Onset (ago): hour(s) Location: head Severity: moderate Severity scale (1-10): 8 Pain Consistency: constant Relieving factors: none Exacerbating factors: none Associated symptoms: Reports chest pain (none currently) and headache(s); Deny confusion, malaise, nausea, rash, palpitations, syncope or vomiting Treatments prior to arrival: none Related Data Previous Rx's Medication Instructions Recorded cefdinir 300 mg capsule 300 mg PO BID 10 days #20 caps 08/13/24 lisinopril 10 mg tablet 10 mg PO BID #30 tabs 08/13/24 Allergies Allergy/AdvReac Type Severity Reaction Status Date / Time Penicillins Allergy ALGY-Rash Verified 04/26/24 16:26 Review of Systems 2 Const: Reports: other (reports feeling weak/shaky); Denies: fever(s), chills, body aches, fatigue or malaise Eyes: Reports: change in vision; Denies: photophobia, floaters or seeing flashes ENMT: Denies: throat pain, odynophagia, ear or mastoid pain, nasal discharge, nasal congestion or sinus pain Card: Reports: chest pain (none currently); Denies: palpitations, irregular heart rhythm, edema, swelling of feet/ankles, lightheadedness, syncope, pre-syncope, dyspnea on exertion, orthopnea, leg pain with exertion or acrocyanosis Resp: Denies: productive cough, non-productive cough, wheezing, pain on inspiration, hemoptysis or chest congestion GI: Denies: abdominal pain, nausea, vomiting or diarrhea : Denies: flank pain or dysuria Musc: Denies: neck pain, back pain, extremity pain, extremity swelling, joint pain or joint swelling Skin/Breast: Denies: rash Neuro: Reports: headache(s); Denies: numbness in extremities, weakness in extremities, sensory changes, lack of coordination, difficulty walking, frequent falls, dizziness, vertigo, confusion, behavioral changes, Slurred speech present, difficulty communicating thoughts or seizure-like activity PFSH ED 2 PFSH: Medical History Gastroenteritis GERD without esophagitis Surgical History H/O tubal ligation Social History Smoking and tobacco/nicotine status: current every day tobacco/nicotine user cigarettes Physical Exam 2 Const: COMMON NORMALS: no acute distress, average body habitus, patient oriented x3, no limitations, healthy appearing, alert and well nourished G ENERAL APPEARANCE: cooperative ORIENTATION/CONSCIOUSNESS: Yes awake, Yes oriented to person, Yes oriented to place and Yes oriented to time HENMT: COMMON NORMALS: normocephalic and atraumatic HEAD & SCALP: normal to inspection, normocephalic and atraumatic FACE & SINUS: normal facial exam, sinuses nontender and face symmetric Eye: COMMON NORMALS: Equal, round and reactive pupils present and EOMs intact bilaterally GENERAL EYE: appearance normal, both eyes and all related structures and normal light reflex PUPIL: Yes Equal, round and reactive pupils present DIRECT OPHTHALMOSCOPY: Yes normal light reflex Neck/C-Spine: COMMON NORMALS: full ROM, no lymphadenopathy, supple and no meningeal signs Chest: COMMONS NORMALS: normal inspection of the chest and normal palpation of entire chest wall Resp: COMMON NORMALS: normal respiratory effort and clear to auscultation bilaterally AUSCULTATION: clear to auscultation bilaterally Cardio: COMMON NORMALS: regular rate and regular rhythm RATE: regular rate RHYTHM: regular rhythm GI: COMMON NORMALS: Normal to inspection, nondistended, normoactive bowel sounds present, Soft to palpation, non-tender, No hepatosplenomegaly present and no masses PALPATION: Yes Soft to palpation and Yes No hepatosplenomegaly present : COMMON NORMALS: Yes no CVA tenderness BLADDER/KIDNEY EXAM: Yes no CVA tenderness Back/Pelvis: COMMON NORMALS: no CVA tenderness and thoracic and lumbar spine normal to inspection Extremity: COMMON NORMALS: normal to inspection GENERAL: Yes normal exam except as noted Neuro: DIPIKA COMA SCALE: document GCS findings Dipika coma scale eye opening: Spontaneous Kimberly coma scale verbal response: Orientated Dipika coma scale motor response: Obey commands Kimberly coma scale total score: 15 COMMON NORMALS: patient oriented x3, CN's II-XII intact bilaterally, moves all extremities, no focal motor deficits, no sensory deficits noted and gait normal SENSORIUM/ORIENTATION: Yes alert, Yes oriented to person, Yes oriented to place and Yes oriented to time MENINGEAL SIGNS: Yes no meningeal signs Skin: COMMON NORMALS: no rashes or lesions noted GENERAL SKIN EXAM: no rashes or lesions noted Course 2 Vital Signs: Vital signs: Vital Signs Temperature 98.0 F 08/13/24 16:26 Pulse Rate 85 08/13/24 19:00 Respiratory Rate 16 08/13/24 18:06 Blood Pressure 122/82 08/13/24 19:00 Pulse Oximetry 96 08/13/24 19:00 Oxygen Delivery Me thod Room Air 08/13/24 19:00 [facility] - General Adult Lab Data 08/13/24 16:40 08/13/24 16:40 Radiology Impressions Chest X-Ray 08/13/24 16:32 IMPRESSION: As above. Head CT 08/13/24 16:32 IMPRESSION: No acute intracranial abnormality. Head/Neck CTA 08/13/24 17:52 IMPRESSION: No large vessel stenosis or occlusion. IMPRESSION: 1. 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 2. Otherwise, negative CT angiography of the neck. COMMENTS: Consistent with the [employer]'s Incidental Findings Committee white paper (J Am Divina Radiol 2015): In patients aged 35 years and older with an incidental thyroid nodule equal to or greater than 1.[address], MRI or extrathyroidal US, further evaluation with dedicated thyroid US is recommended for patients with normal life expectancy and without comorbidities. For smaller nodules without suspicious features, no further evaluation or follow up is recommended. REFERENCES: NASCET CRITERIA. The degree of stenosis in the cervical segment of the internal carotid artery is based on NASCET criteria. Normal is no stenosis. Mild is less than 50% stenosis. Moderate is 50-69% stenosis. Severe is 70% to 99% stenosis. Total occlusion is no detectable patent lumen. Laboratory Results WBC 7.40 10^3/uL (3.29-11.43) 08/13/24 16:40 RBC 4.54 10^6/uL (3.85-5.65) 08/13/24 16:40 Hgb 14.10 g/dL (11.27-16.99) 08/13/24 16:40 Hct 42.4 % (36-47) 08/13/24 16:40 MCV 93.4 fl (85-98) 08/13/24 16:40 MCH 31.1 pg (27-33) 08/13/24 16:40 MCHC 33.3 g/dL (30-55) 08/13/24 16:40 RDW 12.7 % (12.1-15.1) 08/13/24 16:40 Plt Count 238 10^3/cmm (157-399) 08/13/24 16:40 MPV 10.2 fL (7.4-10.4) 08/13/24 16:40 Neut % (Auto) 55.6 % 08/13/24 16:40 Lymph % (Auto) 34.6 % 08/13/24 16:40 [place] % (Auto) 5.9 % 08/13/24 16:40 Eos % (Auto) 2.4 % 08/13/24 16:40 Baso % (Auto) 1.2 % 08/13/24 16:40 Neut # (Auto) 4.11 10^3/uL (1.8-7.7) 08/13/24 16:40 Lymph # (Auto) 2.6 10^3/uL (0.8-4.8) 08/13/24 16:40 [place] # (Auto) 0.4 10^3/uL (0.2-0.9) 08/13/24 16:40 Eos # (Auto) 0.2 10^3/uL (0.0-0.8) 08/13/24 16:40 Baso # (Auto) 0.1 10^3/uL (0.0-0.1) 08/13/24 16:40 Nucleated RBC % (auto) 0 % 08/13/24 16:40 Nucleated RBCs # 0.0 /100WBC 08/13/24 16:40 Sodium 141 mmol/L (136-145) 08/13/24 16:40 Potassium 3.5 mmol/L (3.5-5.1) 08/13/24 16:40 Chloride 108 mmol/L (98-107) H 08/13/24 16:40 Carbon Dioxide 23 mmol/L (22-29) 08/13/24 16:40 Anion Gap 13.5 (5-19) 08/13/24 16:40 BUN 11 mg/dL (8-23) 08/13/24 16:40 Creatinine 0.5 mg/dL (0.5-0.9) 08/13/24 16:40 GFR Calculation 125.9 mL/min (90-130) 08/13/24 16:40 Glucose 92 mg/dL (65-115) 08/13/24 16:40 Calculated Osmolality 291 mOsm/kg (285-295) 08/13/24 16:40 Calcium 9.0 mg/dL (8.5-10.5) 08/13/24 16:40 Total Bilirubin 0.2 mg/dL (0.15-1.2) 08/13/24 16:40 AST 16 U/L (0-32) 08/13/24 16:40 ALT 11 U/L (0-33) 08/13/24 16:40 Alkaline Phosphatase 70 U/L (35-105) 08/13/24 16:40 Troponin T Baseline < 6 ng/L (0-10) 08/13/24 16:40 Troponin T 120 Minute 6.00 ng/L (0-10) 08/13/24 18:40 Delta Troponin T 0.81865 ABS# (0-10) 08/13/24 18:40 Total Protein 6.5 g/dL (6.6-8.7) L 08/13/24 16:40 Albumin 4.0 g/dL (3.5-5.2) 08/13/24 16:40 Globulin 2.5 g/dL (1.3-4.6) 08/13/24 16:40 Urine Color Yellow (Yellow) 08/13/24 17:10 Urine Appearance Cloudy (CLEAR) A 08/13/24 17:10 Urine pH 6.5 (5-7) 08/13/24 17:10 Ur Specific [place] 1.010 (1.005-1.030) 08/13/24 17:10 Urine Protein Negative (Negative) 08/13/24 17:10 Urine Glucose (UA) Negative (Normal) 08/13/24 17:10 Urine Ketones Negative (Negative) 08/13/24 17:10 Urine Blood Trace (Negative) A 08/13/24 17:10 Urine Nitrate Positive (Negative) A 08/13/24 17:10 Urine Bilirubin Negative (Negative) 08/13/24 17:10 Urine Urobilinogen 1.0 mg/dL (Negative) 08/13/24 17:10 Ur Leukocyte Esterase 2+ (Negative) A 08/13/24 17:10 Urine RBC 0-2 /hpf (0-2) 08/13/24 17:10 Urine WBC 21-50 /hpf (0-5) H 08/13/24 17:10 Ur Squamous Epith Cells 21-50 /hpf (0-5) 08/13/24 17:10 Amorphous Sediment Not Reportable 08/13/24 17:10 Urine Bacteria 4+ /hpf (NONE) H 08/13/24 17:10 Hyaline Casts 0.81 /lpf 08/13/24 17:10 EKG Data EKG 1: Computer generated interpretation: Chest X-Ray 08/13/24 16:32 IMPRESSION: As above. Head CT 08/13/24 16:32 IMPRESSION: No acute intracranial abnormality. Head/Neck CTA 08/13/24 17:52 IMPRESSION: No large vessel stenosis or occlusion. IMPRESSION: 1. 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 2. Otherwise, negative CT angiography of the neck. COMMENTS: Consistent with the [employer]'s Incidental Findings Committee white paper (J Am Divina Radiol 2015): In patients aged 35 years and older with an incidental thyroid nodule equal to or greater than 1.[address], MRI or extrathyroidal US, further evaluation with dedicated thyroid US is recommended for patients with normal life expectancy and without comorbidities. For smaller nodules without suspicious features, no further evaluation or follow up is recommended. REFERENCES: NASCET CRITERIA. The degree of stenosis in the cervical segment of the internal carotid artery is based on NASCET criteria. Normal is no stenosis. Mild is less than 50% stenosis. Moderate is 50-69% stenosis. Severe is 70% to 99% stenosis. Total occlusion is no detectable patent lumen. EKG 2: Computer generated interpretation: Chest X-Ray 08/13/24 16:32 IMPRESSION: As above. Head CT 08/13/24 16:32 IMPRESSION: No acute intracranial abnormality. Head/Neck CTA 08/13/24 17:52 IMPRESSION: No large vessel stenosis or occlusion. IMPRESSION: 1. 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 2. Otherwise, negative CT angiography of the neck. COMMENTS: Consistent with the [place]'s Incidental Findings Committee white paper (J Am Divina Radiol 2015): In patients aged 35 years and older with an incidental thyroid nodule equal to or greater than 1.[address], MRI or extrathyroidal US, further evaluation with dedicated thyroid US is recommended for patients with normal life expectancy and without comorbidities. For smaller nodules without suspicious features, no further evaluation or follow up is recommended. REFERENCES: NASCET CRITERIA. The degree of stenosis in the cervical segment of the internal carotid artery is based on NASCET criteria. Normal is no stenosis. Mild is less than 50% stenosis. Moderate is 50-69% stenosis. Severe is 70% to 99% stenosis. Total occlusion is no detectable patent lumen. Discharge Plan Discharge Patient Disposition: Home Clinical Impression: Hypertension Qualifiers: Hypertension type: primary hypertension Qualified Code(s): I10 - Essential (primary) hypertension Urinary tract infection Qualifiers: Urinary tract infection type: acute cystitis Hematuria presence: without hematuria Qualified Code(s): N30.00 - Acute cystitis without hematuria Condition: Stable Prescriptions: New lisinopril 10 mg tablet 10 mg PO BID Qty: 30 0RF cefdinir 300 mg capsule 300 mg PO BID 10 Days Qty: 20 0RF Discharge Orders: Discharge ED (Routine); Ordered 08/13/24 Ordered By: Alexander Huitron Patient Instructions: Urinary Tract Infection in Women (ED), Hypertension (ED) Activity Restrictions/Additional Instructions: Please follow-up with primary care provider as instructed for further outpatient management. Take your antibiotics for urinary tract infection. You have been prescribed lisinopril 10 mg to take twice a day. Please keep a log of your blood pressures at home to present to primary care provider. Drink plenty of fluids. Please note that if you develop any new or concerning symptoms, or if overall your condition worsens to return to the emergency department for further evaluation/reevaluation. Sign Out Sign Out Data: Patient Sign Out occurred on 08/13/24 at 17:29. Patient's care was discussed, and care was transferred from AYE Leonardo to AYE Bailey. Coding Level of Care Code ED Legal Counsel for Chg Fwd Documented by User: AYE Bailey 08/13/24 20:13 HPI - General Adult 2 General: Chief complaint: Headache Stated complaint: headache Time Seen by Provider: 08/13/24 16:26 Related Data Previous Rx's Medication Instructions Recorded cefdinir 300 mg capsule 300 mg PO BID 10 days #20 caps 08/13/24 lisinopril 10 mg tablet 10 mg PO BID #30 tabs 08/13/24 Allergies Allergy/AdvReac Type Severity Reaction Status Date / Time Penicillins Allergy ALGY-Rash Verified 04/26/24 16:26 [facility] ED 2 PFSH: Medical History Gastroenteritis GERD without esophagitis Surgical History H/O tubal ligation Social History Smoking and tobacco/nicotine status: current every day tobacco/nicotine user cigarettes Physical Exam 2 Neuro: DIPIKA COMA SCALE: document GCS findings Kimberly coma scale total score: 15 Course 2 Vital Signs: Vital signs: Vital Signs Temperature 98.0 F 08/13/24 16:26 Pulse Rate 85 08/13/24 19:00 Respiratory Rate 16 08/13/24 18:06 Blood Pressure 122/82 08/13/24 19:00 Pulse Oximetry 96 08/13/24 19:00 Oxygen Delivery Co thod Room Air 08/13/24 19:00 MDM - General Adult Medical Decision Making Care of patient transferred to mo by dayshift provider, AYE Leonardo. Patient began complaining of some left arm numbness, repeated neurological exam did not appreciate any abnormalities. She states that primary numbness to her fingers, otherwise was having improvement of her headache of which she presented with primarily. Was found to be hypertensive on arrival, was given hydralazine and there was notable improvement of her blood pressure coinciding with her relief of symptoms. I went into discussed discharge with patient regarding her normal workup, urinalysis did show signs of urinary tract infection. Family requesting further imaging to be done as it was unusual of patient to be complaining like this. So a CTA was ordered and did not show any acute findings for her neurological symptoms or headache. Family relieved of this, informed him that she will be referred to primary care for reevaluation of her blood pressure after being started on lisinopril from the emergency department. We will also treat her urinary tract infection as this could be causing her symptoms of overall malaise. With her normal neurological exam and normal workup, very low suspicion of any acute emergent findings at this time. Her heart was checked out with troponin and EKG as well, both of these negative/unremarkable. Discussed with patient importance of drinking plenty of fluids and logging her blood pressures at home, all of the questions and concerns were addressed. Blood pressure noted to be greatly improved, 120s/80s at discharge. She was given a dose of IV Toradol for residual headache, this could also be due to to a viral cause or dehydration. Did inform them that if patient develops any focal neurological findings or overall worsening of condition that she can come back for reevaluation. Family and patient agrees with this plan, will await call to schedule primary care appointment and will begin lisinopril and antibiotics. I discussed the CTA findings of high-grade stenosis of the right vertebral artery with Dr. Lemhan, and informed patient of this finding and she does need to be evaluated through primary care for this in terms of prophylactic medications. Lab Data 08/13/24 16:40 08/13/24 16:40 Radiology Impressions Chest X-Ray 08/13/24 16:32 IMPRESSION: As above. Head CT 08/13/24 16:32 IMPRESSION: No acute intracranial abnormality. Head/Neck CTA 08/13/24 17:52 IMPRESSION: No large vessel stenosis or occlusion. IMPRESSION: 1. 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 2. Otherwise, negative CT angiography of the neck. COMMENTS: Consistent with the [place] [employer]'s Incidental Findings Committee white paper (J Am Divina Radiol 2015): In patients aged 35 years and older with an incidental thyroid nodule equal to or greater than 1.[address], MRI or extrathyroidal US, further evaluation with dedicated thyroid US is recommended for patients with normal life expectancy and without comorbidities. For smaller nodules without suspicious features, no further evaluation or follow up is recommended. REFERENCES: NASCET CRITERIA. The degree of stenosis in the cervical segment of the internal carotid artery is based on NASCET criteria. Normal is no stenosis. Mild is less than 50% stenosis. Moderate is 50-69% stenosis. Severe is 70% to 99% stenosis. Total occlusion is no detectable patent lumen. Laboratory Results WBC 7.40 10^3/uL (3.29-11.43) 08/13/24 16:40 RBC 4.54 10^6/uL (3.85-5.65) 08/13/24 16:40 Hgb 14.10 g/dL (11.27-16.99) 08/13/24 16:40 Hct 42.4 % (36-47) 08/13/24 16:40 MCV 93.4 fl (85-98) 08/13/24 16:40 MCH 31.1 pg (27-33) 08/13/24 16:40 MCHC 33.3 g/dL (30-55) 08/13/24 16:40 RDW 12.7 % (12.1-15.1) 08/13/24 16:40 Plt Count 238 10^3/cmm (157-399) 08/13/24 16:40 MPV 10.2 fL (7.4-10.4) 08/13/24 16:40 Neut % (Auto) 55.6 % 08/13/24 16:40 Lymph % (Auto) 34.6 % 08/13/24 16:40 Carolina % (Auto) 5.9 % 08/13/24 16:40 Eos % (Auto) 2.4 % 08/13/24 16:40 Baso % (Auto) 1.2 % 08/13/24 16:40 Neut # (Auto) 4.11 10^3/uL (1.8-7.7) 08/13/24 16:40 Lymph # (Auto) 2.6 10^3/uL (0.8-4.8) 08/13/24 16:40 [place] # (Auto) 0.4 10^3/uL (0.2-0.9) 08/13/24 16:40 Eos # (Auto) 0.2 10^3/uL (0.0-0.8) 08/13/24 16:40 Baso # (Auto) 0.1 10^3/uL (0.0-0.1) 08/13/24 16:40 Nucleated RBC % (auto) 0 % 08/13/24 16:40 Nucleated RBCs # 0.0 /100WBC 08/13/24 16:40 Sodium 141 mmol/L (136-145) 08/13/24 16:40 Potassium 3.5 mmol/L (3.5-5.1) 08/13/24 16:40 Chloride 108 mmol/L (98-107) H 08/13/24 16:40 Carbon Dioxide 23 mmol/L (22-29) 08/13/24 16:40 Anion Gap 13.5 (5-19) 08/13/24 16:40 BUN 11 mg/dL (8-23) 08/13/24 16:40 Creatinine 0.5 mg/dL (0.5-0.9) 08/13/24 16:40 GFR Calculation 125.9 mL/min (90-130) 08/13/24 16:40 Glucose 92 mg/dL (65-115) 08/13/24 16:40 Calculated Osmolality 291 mOsm/kg (285-295) 08/13/24 16:40 Calcium 9.0 mg/dL (8.5-10.5) 08/13/24 16:40 Total Bilirubin 0.2 mg/dL (0.15-1.2) 08/13/24 16:40 AST 16 U/L (0-32) 08/13/24 16:40 ALT 11 U/L (0-33) 08/13/24 16:40 Alkaline Phosphatase 70 U/L (35-105) 08/13/24 16:40 Troponin T Baseline < 6 ng/L (0-10) 08/13/24 16:40 Troponin T 120 Minute 6.00 ng/L (0-10) 08/13/24 18:40 Delta Troponin T 0.78609 ABS# (0-10) 08/13/24 18:40 Total Protein 6.5 g/dL (6.6-8.7) L 08/13/24 16:40 Albumin 4.0 g/dL (3.5-5.2) 08/13/24 16:40 Globulin 2.5 g/dL (1.3-4.6) 08/13/24 16:40 Urine Color Yellow (Yellow) 08/13/24 17:10 Urine Appearance Cloudy (CLEAR) A 08/13/24 17:10 Urine pH 6.5 (5-7) 08/13/24 17:10 Ur Specific [place] 1.010 (1.005-1.030) 08/13/24 17:10 Urine Protein Negative (Negative) 08/13/24 17:10 Urine Glucose (UA) Negative (Normal) 08/13/24 17:10 Urine Ketones Negative (Negative) 08/13/24 17:10 Urine Blood Trace (Negative) A 08/13/24 17:10 Urine Nitrate Positive (Negative) A 08/13/24 17:10 Urine Bilirubin Negative (Negative) 08/13/24 17:10 Urine Urobilinogen 1.0 mg/dL (Negative) 08/13/24 17:10 Ur Leukocyte Esterase 2+ (Negative) A 08/13/24 17:10 Urine RBC 0-2 /hpf (0-2) 08/13/24 17:10 Urine WBC 21-50 /hpf (0-5) H 08/13/24 17:10 Ur Squamous Epith Cells 21-50 /hpf (0-5) 08/13/24 17:10 Amorphous Sediment Not Reportable 08/13/24 17:10 Urine Bacteria 4+ /hpf (NONE) H 08/13/24 17:10 Hyaline Casts 0.81 /lpf 08/13/24 17:10 All radiology interpretation(s) finalized by discharge EKG Data EKG 1: EKG interpretation date: 08/13/24 EKG interpretation time: 17:16 Prior EKG tracings: available for review Interpretation: Reviewed with physician. NSR. Rate 97. No acute ST/T changes. No significant change from previous in 06/2022. Computer generated interpretation: Chest X-Ray 08/13/24 16:32 IMPRESSION: As above. Head CT 08/13/24 16:32 IMPRESSION: No acute intracranial abnormality. Head/Neck CTA 08/13/24 17:52 IMPRESSION: No large vessel stenosis or occlusion. IMPRESSION: 1. 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 2. Otherwise, negative CT angiography of the neck. COMMENTS: Consistent with the [place]'s Incidental Findings Committee white paper (J Am Divina Radiol 2015): In patients aged 35 years and older with an incidental thyroid nodule equal to or greater than 1.[address], MRI or extrathyroidal US, further evaluation with dedicated thyroid US is recommended for patients with normal life expectancy and without comorbidities. For smaller nodules without suspicious features, no further evaluation or follow up is recommended. REFERENCES: NASCET CRITERIA. The degree of stenosis in the cervical segment of the internal carotid artery is based on NASCET criteria. Normal is no stenosis. Mild is less than 50% stenosis. Moderate is 50-69% stenosis. Severe is 70% to 99% stenosis. Total occlusion is no detectable patent lumen. EKG 2: EKG interpretation date: 08/13/24 EKG interpretation time: 18:42 Prior EKG tracings: available for review Interpretation: Reviewed with physician. Rate 89. NSR. No acute ST/T changes. No change from previous. Computer generated interpretation: Chest X-Ray 08/13/24 16:32 IMPRESSION: As above. Head CT 08/13/24 16:32 IMPRESSION: No acute intracranial abnormality. Head/Neck CTA 08/13/24 17:52 IMPRESSION: No large vessel stenosis or occlusion. IMPRESSION: 1. 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 2. Otherwise, negative CT angiography of the neck. COMMENTS: Consistent with the [place] [employer]'s Incidental Findings Committee white paper (J Am Divina Radiol 2015): In patients aged 35 years and older with an incidental thyroid nodule equal to or greater than 1.[address], MRI or extrathyroidal US, further evaluation with dedicated thyroid US is recommended for patients with normal life expectancy and without comorbidities. For smaller nodules without suspicious features, no further evaluation or follow up is recommended. REFERENCES: NASCET CRITERIA. The degree of stenosis in the cervical segment of the internal carotid artery is based on NASCET criteria. Normal is no stenosis. Mild is less than 50% stenosis. Moderate is 50-69% stenosis. Severe is 70% to 99% stenosis. Total occlusion is no detectable patent lumen. Discharge Plan Discharge Patient Disposition: Home Clinical Impression: Hypertension Qualifiers: Hypertension type: primary hypertension Qualified Code(s): I10 - Essential (primary) hypertension Urinary tract infection Qualifiers: Urinary tract infection type: acute cystitis Hematuria presence: without hematuria Qualified Code(s): N30.00 - Acute cystitis without hematuria Condition: Stable Prescriptions: New lisinopril 10 mg tablet 10 mg PO BID Qty: 30 0RF cefdinir 300 mg capsule 300 mg PO BID 10 Days Qty: 20 0RF Discharge Orders: Discharge ED (Routine); Ordered 08/13/24 Ordered By: Alexander Huitron Patient Instructions: Urinary Tract Infection in Women (ED), Hypertension (ED) Activity Restrictions/Additional Instructions: Please follow-up with primary care provider as instructed for further outpatient management. Take your antibiotics for urinary tract infection. You have been prescribed lisinopril 10 mg to take twice a day. Please keep a log of your blood pressures at home to present to primary care provider. Drink plenty of fluids. Please note that if you develop any new or concerning symptoms, or if overall your condition worsens to return to the emergency department for further evaluation/reevaluation. Sign Out Sign Out Data: Patient Sign Out occurred on 08/13/24 at 17:29. Patient's care was discussed, and care was transferred from AYE Leonardo to AYE Bailey. Coding Level of Care Code ED Legal Counsel for Libra Lange
--- NOTE | 2024-08-13 16:32 | CTR_ITS ---
PROCEDURE INFORMATION: Exam: CT Head Without Contrast Exam date and time: 08/13/2024 4:55 PM Age: 59 years old Clinical indication: Pain; Headache; Additional info: Headache, HTN TECHNIQUE: Imaging protocol: Computed tomography of the head without contrast. Radiation optimization: All CT scans at this facility use at least one of these dose optimization techniques: automated exposure control; mA and/or kV adjustment per patient size (includes targeted exams where dose is matched to clinical indication); or iterative reconstruction. COMPARISON: CT head wo con* [id number] 06/18/2022 7:59 PM RADIATION DOSE METRICS: Total DLP (mGy-cm): 984.95 FINDINGS: Brain: Normal. No hemorrhage. Unremarkable white matter. No mass effect. Cerebral ventricles: No ventriculomegaly. Paranasal sinuses: Visualized sinuses are unremarkable. No fluid levels. Mastoid air cells: Visualized mastoid air cells are well aerated. Bones: Unremarkable. No acute fracture. Soft tissues: Unremarkable. CT/CT head wo con* [id number] IMPRESSION: No acute intracranial abnormality.
[2024-08-13] MEDS: hyDRALAzine 20 mg/mL INJ 1 mL 10 MG IVP (16:46)
[2024-08-13 16:50] LABS: Basophils # 0.1 10^3/uL (0.0-0.1); Basophils % 1.2 %; Eosinophils # 0.2 10^3/uL (0.0-0.8); Eosinophils % 2.4 %; Hematocrit 42.4 % (36-47); Lymphocytes # 2.6 10^3/uL (0.8-4.8); Lymphocytes % 34.6 %; Mean Corpuscular HGB Conc 33.3 g/dL (30-55); Mean Corpuscular Hemoglobin 31.1 pg (27-33); Mean Corpuscular Volume 93.4 fl (85-98); Mean Platelet Volume 10.2 fL (7.4-10.4); Monocytes # 0.4 10^3/uL (0.2-0.9); Monocytes % 5.9 %; Neutrophils # 4.11 10^3/uL (1.8-7.7); Neutrophils % 55.6 %; Nucleated Red Blood Cells % 0 %; Platelet Count 238 10^3/cmm (157-399); Red Blood Count 4.54 10^6/uL (3.85-5.65); Red Cell Distribution Width 12.7 % (12.1-15.1)
[2024-08-13 17:07] LABS: Alanine Aminotransferase 11 U/L (0-33); Alkaline Phosphatase 70 U/L (35-105); Blood Urea Nitrogen 11 mg/dL (8-23); Carbon Dioxide 23 mmol/L (22-29); Chloride 108 mmol/L (98-107); Globulin 2.5 g/dL (1.3-4.6); Glomerular Filtration Rate 125.9 mL/min (90-130); Glucose 92 mg/dL (65-115); Osmolality Calculated 291 mOsm/kg (285-295); Sodium 141 mmol/L (136-145); Total Bilirubin 0.2 mg/dL (0.15-1.2); Total Protein 6.5 g/dL (6.6-8.7)
[2024-08-13 17:20] LABS: Bilirubin Urine Negative (Negative); Blood Urine Trace (Negative); Glucose Urine UA Negative (Normal); Ketones Urine Negative (Negative); Leukocyte Esterase Urine 2+ (Negative); Nitrate Urine Positive (Negative); Protein Urine Negative (Negative); Urine Appearance Cloudy (CLEAR); Urine Color Yellow (Yellow); pH Urine 6.5 (5-7)
--- NOTE | 2024-08-13 17:22 | PC.NURSE ---
pt stating her left arm is numb while bp cuff was taking, pt states it started before ct scan and was present when pt got back to room, pt has equal bilat hand grasp, radial +2pulse, pt able to hold left arm up without touching bed. this was reported to sandy bailon.
[2024-08-13 17:23] LABS: Troponin(5th) Baseline < 6 ng/L (0-10)
[2024-08-13 17:25] LABS: Add Urine Microscopic? YES; Bacteria Urine 4+ /hpf; Hyaline Casts Urine 0.81 /lpf; RBC Urine 0-2 /hpf (0-2); Squamous Epithelial Cell Urine 21-50 /hpf (0-5); WBC Urine 21-50 /hpf (0-5)
[2024-08-13 17:28] LABS: Anion Gap 13.5 (5-19); Aspartate Amino Transferase 16 U/L (0-32); Potassium 3.5 mmol/L (3.5-5.1)
[2024-08-13 17:31] LABS: Add Urine Culture? Yes
--- NOTE | 2024-08-13 17:52 | CTR_ITS ---
PROCEDURE INFORMATION: Exam: CTA Head With Contrast, Arteriography Exam date and time: 08/13/2024 6:27 PM Age: 59 years old Clinical indication: Pain; Headache; Additional info: Headache, numbness, normal head CT w/o TECHNIQUE: Imaging protocol: Computed tomographic angiography of the head with contrast. Exam focused on the arteries. 3D rendering (Not supervised by radiologist): MIP and/or 3D reconstructed images were created by the technologist. Radiation optimization: All CT scans at this facility use at least one of these dose optimization techniques: automated exposure control; mA and/or kV adjustment per patient size (includes targeted exams where dose is matched to clinical indication); or iterative reconstruction. Contrast material: OMNIPAQUE 350; Contrast volume: 100 ml; Contrast route: INTRAVENOUS (IV); COMPARISON: CT head wo con* [id number] 08/13/2024 4:55 PM RADIATION DOSE METRICS: Total DLP (mGy-cm): 317.32 FINDINGS: ANTERIOR CIRCULATION: Right internal carotid artery: Intracranial segment is patent with no significant stenosis. No aneurysm. Right middle cerebral artery: No occlusion or significant stenosis. No aneurysm. Right anterior cerebral artery: No occlusion or significant stenosis. No aneurysm. Left internal carotid artery: Intracranial segment is patent with no significant stenosis. No aneurysm. Left middle cerebral artery: No occlusion or significant stenosis. No aneurysm. Left anterior cerebral artery: No occlusion or significant stenosis. No aneurysm. POSTERIOR CIRCULATION: Right vertebral artery: No occlusion or significant stenosis. No aneurysm. Left vertebral artery: No occlusion or significant stenosis. No aneurysm. Basilar artery: No occlusion or significant stenosis. No aneurysm. Right posterior cerebral artery: No occlusion or significant stenosis. No aneurysm. Left posterior cerebral artery: No occlusion or significant stenosis. No aneurysm. Brain: No definite mass, mass effect, or midline shift. Cerebral ventricles: No ventriculomegaly. Bones/joints: Unremarkable. No acute fracture. Soft tissues: Unremarkable. PROCEDURE INFORMATION: Exam: CTA Neck With Contrast Exam date and time: 08/13/2024 6:27 PM Age: 59 years old Clinical indication: Pain; Headache; Additional info: Headache, numbness, normal head CT w/o TECHNIQUE: Imaging protocol: Computed tomographic angiography of the neck with contrast. Exam focused on the cervical segments of the vasculature. 3D rendering (Not supervised by radiologist): MIP and/or 3D reconstructed images were created by the technologist. Radiation optimization: All CT scans at this facility use at least one of these dose optimization techniques: automated exposure control; mA and/or kV adjustment per patient size (includes targeted exams where dose is matched to clinical indication); or iterative reconstruction. Contrast material: OMNIPAQUE 350; Contrast volume: 100 ml; Contrast route: INTRAVENOUS (IV); COMPARISON: CT cervical spin wo con* [id number] 03/10/2020 1:26 AM RADIATION DOSE METRICS: Total DLP (mGy-cm): 317.32 FINDINGS: Right common carotid artery: No stenosis. No dissection or occlusion. Right internal carotid artery: No stenosis of the extracranial segment. No dissection or occlusion. Right external carotid artery: No occlusion or stenosis of the origin. Left common carotid artery: No stenosis. No dissection or occlusion. Left internal carotid artery: No stenosis of the extracranial segment. No dissection or occlusion. Left external carotid artery: No occlusion or stenosis of the origin. Right vertebral artery: The right vertebral artery is hypoplastic with a high-grade stenosis at its origin. Left vertebral artery: The patient is left vertebral artery dominant. The left vertebral artery is widely patent. Aorta: There is mild calcific plaque involving the aortic arch. Thyroid: Multiple tiny 1 cm thyroid nodules noted likely benign. Soft tissues: Normal. No significant soft tissue swelling. Bones/joints: No acute fracture. Multilevel degenerative changes involve the cervical spine. Lungs: The visualized lung apices demonstrates moderate pulmonary emphysematous changes. CT/CT angio headneck* [id number] IMPRESSION: No large vessel stenosis or occlusion. IMPRESSION: 1. 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 2. Otherwise, negative CT angiography of the neck. COMMENTS: Consistent with the [employer]'s Incidental Findings Committee white paper (J Am Divina Radiol 2015): In patients aged 35 years and older with an incidental thyroid nodule equal to or greater than 1.[address], MRI or extrathyroidal US, further evaluation with dedicated thyroid US is recommended for patients with normal life expectancy and without comorbidities. For smaller nodules without suspicious features, no further evaluation or follow up is recommended. REFERENCES: NASCET CRITERIA. The degree of stenosis in the cervical segment of the internal carotid artery is based on NASCET criteria. Normal is no stenosis. Mild is less than 50% stenosis. Moderate is 50-69% stenosis. Severe is 70% to 99% stenosis. Total occlusion is no detectable patent lumen.
[2024-08-13] MEDS: cefTRIAXone 1,000 mg SDV 1000 MG IVP (18:05)
[2024-08-13] MEDS: iohexol 350 mg/mL 500 mL Btl (per mL) IV (18:29)
--- NOTE | 2024-08-13 18:32 | ECG_ITS ---
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 Measurements Intervals [place] Rate: 89 P: 71 MO: 154 QRS: 71 QRSD: 74 T: 64 QT: 375 QTc: 458 Interpretive Statements SINUS RHYTHM POSSIBLE LEFT ATRIAL ENLARGEMENT [-0.1mV P-WAVE IN V1/V2] SEPTAL MYOCARDIAL INFARCTION , OF INDETERMINATE AGE [40+ ms Q WAVE IN V1/V2] Compared to ECG 08/13/2024 17:16:25 No significant changes Electronically Signed On 08-14-2024 17:51:04 PHOTOENGRAVING FINISHER by Néstor Murphy M.D. [id number]
[2024-08-13 19:26] LABS: Troponin 5 2HR Delta 0.00001 ABS# (0-10)
[2024-08-13] MEDS: ketorolac 30 mg/mL INJ IVP (20:08)
--- NOTE | 2024-08-16 11:02 | DCPLANNER ---
messaged wpfm to est pcp
== END 2024-08-13 20:15 | disposition home or self-care (01) ==
PROVIDERS: Physician Assistant; Emergency Provider Physician Assistant
DX: I10 Essential (primary) hypertension (principal); N30.00 Acute cystitis without hematuria; F17.210 Nicotine dependence, cigarettes, uncomplicated
CPT/HCPCS: 36415; 70450; 70496; 70498; 71045; 80053; 81001; 84484; 85025; 87077; 87086; 87186; 93005; 96374; 96375; 99285; J0360; J0696; J1885

== ENCOUNTER 2024-09-08 17:27 | Emergency (ER) | payer MEDICAID, SELFPAY ==
[2024-09-08 17:38] VITALS: BP 197/104; PULSE 124; RESP 18; TEMP 36.4; O2SAT 100; BMI 20.1
--- NOTE | 2024-09-08 18:08 | XRR_ITS ---
PROCEDURE INFORMATION: Exam: XR Chest Exam date and time: 09/08/2024 6:14 PM Age: 59 years old Clinical indication: Pain; Chest pressure; Additional info: Chest pain TECHNIQUE: Imaging protocol: Radiologic exam of the chest. Views: 1 view. COMPARISON: CR (CHEST, ) 08/13/2024 4:39 PM FINDINGS: Lungs: No consolidation. A few minute calcified lung nodules are seen incidentally. Pleural spaces: Unremarkable. No pleural effusion. No pneumothorax. Heart/Mediastinum: Unremarkable. No cardiomegaly. Bones/joints: Unremarkable. XR/XR chest 1V portable [id number] IMPRESSION: No acute findings.
--- NOTE | 2024-09-08 18:08 | CTR_ITS ---
PROCEDURE INFORMATION: Exam: CT Head Without Contrast Exam date and time: 09/08/2024 6:56 PM Age: 59 years old Clinical indication: Patient HX: C/O dizziness TECHNIQUE: Imaging protocol: Computed tomography of the head without contrast. Radiation optimization: All CT scans at this facility use at least one of these dose optimization techniques: automated exposure control; mA and/or kV adjustment per patient size (includes targeted exams where dose is matched to clinical indication); or iterative reconstruction. COMPARISON: CT angio headneck* [id number] 08/13/2024 6:27 PM RADIATION DOSE METRICS: Total DLP (mGy-cm): 935.08 FINDINGS: Brain: No focal hemorrhage or midline shift is identified. The ventricles and parenchyma show mild atrophy and chronic bicerebral white matter ischemic change. Cerebral ventricles: No ventriculomegaly or evidence of hydrocephalus. Paranasal sinuses: The partially assessed sinuses are grossly clear. Mastoid air cells: Visualized mastoid air cells are well aerated. Bones: No displaced skull fracture is noted. Soft tissues: Unremarkable. Vasculature: Diffuse vascular calcifications are present. CT/CT head wo con* [id number] IMPRESSION: 1. No acute intracranial abnormality. 2. Mild age-related changes. No significant change from 08/13/2024.
--- NOTE | 2024-09-08 18:09 | ECG_ITS ---
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 Measurements Intervals [place] Rate: 92 P: 85 CO: 139 QRS: 87 QRSD: 83 T: 80 QT: 355 QTc: 439 Interpretive Statements SINUS RHYTHM SEPTAL MYOCARDIAL INFARCTION , OF INDETERMINATE AGE [40+ ms Q WAVE IN V1/V2] Compared to ECG 08/13/2024 18:42:17 No significant changes Electronically Signed On 09-08-2024 22:55:43 ADMITTING CLERK by Vinh Montana M.D. [email or web address]
[2024-09-08 18:14] VITALS: BP 164/104; PULSE 87; RESP 16; O2SAT 94
[2024-09-08 18:18] LABS: Basophils # 0.1 10^3/uL (0.0-0.1); Basophils % 0.9 %; Eosinophils # 0.1 10^3/uL (0.0-0.8); Eosinophils % 0.9 %; Hematocrit 42.3 % (36-47); Lymphocytes # 2.4 10^3/uL (0.8-4.8); Lymphocytes % 28.3 %; Mean Corpuscular HGB Conc 34.5 g/dL (30-55); Mean Corpuscular Hemoglobin 31.1 pg (27-33); Mean Corpuscular Volume 90.2 fl (85-98); Mean Platelet Volume 9.5 fL (7.4-10.4); Monocytes # 0.5 10^3/uL (0.2-0.9); Monocytes % 5.9 %; Neutrophils # 5.44 10^3/uL (1.8-7.7); Neutrophils % 63.8 %; Nucleated Red Blood Cells % 0 %; Platelet Count 251 10^3/cmm (157-399); Red Blood Count 4.69 10^6/uL (3.85-5.65); Red Cell Distribution Width 12.3 % (12.1-15.1); White Blood Count 8.54 10^3/uL (3.29-11.43)
[2024-09-08] MEDS: diazePAM 5 mg Tablet PO (18:29)
--- NOTE | 2024-09-08 18:34 | W.ED.DIZZY ---
HPI - Dizziness General: Chief Complaint: Dizziness Stated Complaint: trouble breathing and shaking Time Seen by Provider: 09/08/24 17:48 Source: patient History of Present Illness: HPI Narrative: Patient is a nontoxic 59-year-old female who presents to the ER with primary complaint of feeling suddenly dizzy. She states she was standing at her kitchen doing dishes whenever she felt this overwhelming sensation of dizziness and feeling off balance and as if everything was spinning. She states she had some mild associated chest pain as well. Her dizziness has improved but she still has it somewhat. She states she had some blurred vision associated with it. No dysphagia or dysarthria. No unilateral arm or leg weakness. MD elicited complaint: dizziness and lightheadedness Severity: moderate Description: sense of movement Associated symptoms: Reports chest pain and nausea; Denies chills, headache(s), palpitations or vomiting Related Data Previous Rx's Medication Instructions Recorded lisinopril 5 mg tablet 5 mg PO DAILY #30 tabs 08/27/24 meclizine 12.5 mg tablet 12.5 mg PO TID PRN dizziness #30 09/08/24 tabs Allergies Allergy/AdvReac Type Severity Reaction Status Date / Time Penicillins Allergy ALGY-Rash Verified 09/08/24 17:42 Review of Systems Const: Denies: fever(s) or chills Eyes: Reports: change in vision and blurry vision ENMT: Denies: throat pain Card: Reports: chest pain; Denies: palpitations Resp: Denies: dyspnea GI: Reports: nausea; Denies: abdominal pain or vomiting Skin/Breast: Denies: rash Neuro: Denies: headache(s) PFS ED PFSH: Medical History (Updated 09/08/24 @ 20:55 by Silvestre Rodriguez MD) Seborrheic keratosis Screening for breast cancer Hypertension Gastroenteritis GERD without esophagitis Surgical History H/O tubal ligation Family History (Updated 08/27/24 @ 09:01 by Tiffany Knox NP) Mother Cancer Brother Diabetes Social History Smoking and tobacco/nicotine status: current every day tobacco/nicotine user cigarettes Physical Exam Const: COMMON NORMALS: no acute distress, average body habitus, alert and well nourished GENERAL APPEARANCE: cooperative ORIENTATION/CONSCIOUSNESS: Yes awake HENMT: COMMON NORMALS: normocephalic and atraumatic HEAD & SCALP: normocephalic and atraumatic Eye: COMMON NORMALS: conjunctivae normal CONJUNCTIVA: Yes conjunctivae normal Neck/C-Spine: GENERAL: Yes normal visual inspection Resp: COMMON NORMALS: normal respiratory effort, No retractions and No use of accessory muscles Cardio: COMMON NORMALS: regular rhythm and Peripheral pulses 2+ throughout RHYTHM: regular rhythm PERIPHERAL PULSES: Peripheral pulses 2+ throughout GI: COMMON NORMALS: Soft to palpation and non-tender PALPATION: Yes Soft to palpation Extremity: COMMON NORMALS: full ROM and no pedal edema Neuro: COMMON NORMALS: no focal motor deficits SENSORIUM/ORIENTATION: Yes alert Skin: COMMON NORMALS: no rashes or lesions noted GENERAL SKIN EXAM: no rashes or lesions noted Course Vital Signs: Vital signs: Vital Signs Temperature 97.6 F 09/08/24 17:38 Pulse Rate 82 09/08/24 20:00 Respiratory Rate 16 09/08/24 20:00 Blood Pressure 130/81 09/08/24 20:00 Pulse Oximetry 94 09/08/24 20:00 Oxygen Delivery Me thod Room Air 09/08/24 20:00 MDM - Dizziness Medical Decision Making Patient is a nontoxic 59-year-old female who presents to the ER with complaint of sudden onset of dizziness while she was standing in the kitchen of her home. She was initially quite hypertensive here and is prescribed blood pressure medication but admits to noncompliance with that and did not take it today. EKG is sinus rhythm with right bundle branch block. Troponin and delta troponin are normal. CT head is negative for acute findings. Chest x-ray is unremarkable. Basic labs including a CBC and CMP are unremarkable. She was given a dose of Valium and on reassessment states she is feeling significantly better. Vital signs have normalized and blood pressure on recheck is 117/83. We discussed differential diagnosis and need for close outpatient follow-up. She has an appointment to see her PCP next Tuesday. She is comfortable with discharge home and her daughters were in the room at the time of the discussion and she is planning to go home with one of the daughters to stay with them. Return precautions were provided. Lab Data I reviewed the patient's lab results. 09/08/24 18:10 09/08/24 18:10 Radiology Impressions Chest X-Ray 09/08/24 18:08 IMPRESSION: No acute findings. Head CT 09/08/24 18:08 IMPRESSION: 1. No acute intracranial abnormality. 2. Mild age-related changes. No significant change from 08/13/2024. Laboratory Results WBC 8.54 10^3/uL (3.29-11.43) 09/08/24 18:10 RBC 4.69 10^6/uL (3.85-5.65) 09/08/24 18:10 Hgb 14.60 g/dL (11.27-16.99) 09/08/24 18:10 Hct 42.3 % (36-47) 09/08/24 18:10 MCV 90.2 fl (85-98) 09/08/24 18:10 MCH 31.1 pg (27-33) 09/08/24 18:10 MCHC 34.5 g/dL (30-55) 09/08/24 18:10 RDW 12.3 % (12.1-15.1) 09/08/24 18:10 Plt Count 251 10^3/cmm (157-399) 09/08/24 18:10 MPV 9.5 fL (7.4-10.4) 09/08/24 18:10 Neut % (Auto) 63.8 % 09/08/24 18:10 Lymph % (Auto) 28.3 % 09/08/24 18:10 [place] % (Auto) 5.9 % 09/08/24 18:10 Eos % (Auto) 0.9 % 09/08/24 18:10 Baso % (Auto) 0.9 % 09/08/24 18:10 Neut # (Auto) 5.44 10^3/uL (1.8-7.7) 09/08/24 18:10 Lymph # (Auto) 2.4 10^3/uL (0.8-4.8) 09/08/24 18:10 [place] # (Auto) 0.5 10^3/uL (0.2-0.9) 09/08/24 18:10 Eos # (Auto) 0.1 10^3/uL (0.0-0.8) 09/08/24 18:10 Baso # (Auto) 0.1 10^3/uL (0.0-0.1) 09/08/24 18:10 Nucleated RBC % (auto) 0 % 09/08/24 18:10 Nucleated RBCs # 0.0 /100WBC 09/08/24 18:10 Sodium 143 mmol/L (136-145) 09/08/24 18:10 Potassium 3.8 mmol/L (3.5-5.1) 09/08/24 18:10 Chloride 107 mmol/L (98-107) 09/08/24 18:10 Carbon Dioxide 23 mmol/L (22-29) 09/08/24 18:10 Anion Gap 16.8 (5-19) 09/08/24 18:10 BUN 11 mg/dL (8-23) 09/08/24 18:10 Creatinine 0.5 mg/dL (0.5-0.9) 09/08/24 18:10 GFR Calculation 125.9 mL/min (90-130) 09/08/24 18:10 Glucose 90 mg/dL (65-115) 09/08/24 18:10 Calculated Osmolality 295 mOsm/kg (285-295) 09/08/24 18:10 Calcium 9.5 mg/dL (8.5-10.5) 09/08/24 18:10 Magnesium 1.8 mg/dL (1.7-2.3) 09/08/24 18:10 Total Bilirubin 0.2 mg/dL (0.15-1.2) 09/08/24 18:10 AST 17 U/L (0-32) 09/08/24 18:10 ALT 14 U/L (0-33) 09/08/24 18:10 Alkaline Phosphatase 79 U/L (35-105) 09/08/24 18:10 Troponin T Baseline < 6 ng/L (0-10) 09/08/24 18:10 Troponin T 120 Minute 6.00 ng/L (0-10) 09/08/24 19:46 Delta Troponin T 0.99331 ABS# (0-10) 09/08/24 19:46 Total Protein 6.4 g/dL (6.6-8.7) L 09/08/24 18:10 Albumin 4.3 g/dL (3.5-5.2) 09/08/24 18:10 Globulin 2.1 g/dL (1.3-4.6) 09/08/24 18:10 Urine Color Yellow (Yellow) 09/08/24 19:38 Urine Appearance Clear (CLEAR) 09/08/24 19:38 Urine pH 6.0 (5-7) 09/08/24 19:38 Ur Specific Page 1.005 (1.005-1.030) 09/08/24 19:38 Urine Protein Negative (Negative) 09/08/24 19:38 Urine Glucose (UA) Negative (Normal) 09/08/24 19:38 Urine Ketones Negative (Negative) 09/08/24 19:38 Urine Blood Trace (Negative) A 09/08/24 19:38 Urine Nitrate Negative (Negative) 09/08/24 19:38 Urine Bilirubin Negative (Negative) 09/08/24 19:38 Urine Urobilinogen 0.2 mg/dL (Negative) 09/08/24 19:38 Ur Leukocyte Esterase Negative (Negative) 09/08/24 19:38 Urine RBC 0-2 /hpf (0-2) 09/08/24 19:38 Urine WBC 0-5 /hpf (0-5) 09/08/24 19:38 Ur Squamous Epith Cells 0-5 /hpf (0-5) 09/08/24 19:38 Amorphous Sediment Not Reportable 09/08/24 19:38 Urine Bacteria None seen /hpf (NONE) 09/08/24 19:38 Hyaline Casts 0.40 /lpf 09/08/24 19:38 All radiology interpretation(s) finalized by discharge Discharge Plan Discharge Patient Disposition: Home Clinical Impression: Vertigo Hypertension Qualifiers: Hypertension type: unspecified Qualified Code(s): I10 - Essential (primary) hypertension Condition: Stable Prescriptions: New meclizine 12.5 mg tablet 12.5 mg PO TID PRN (Reason: dizziness) Qty: 30 0RF No Action lisinopril 5 mg tablet 5 mg PO DAILY Qty: 30 0RF Discharge Orders: Discharge ED (Routine); Ordered 09/08/24 Ordered By: Silvestre Rodriguez Referrals: Sandy Dey MD [Primary Care Provider] - Discharge Diet: Cardiac Discharge Activity: Increase activity as tolerated Patient Instructions: Opioid Safety, Pain Management, Vertigo (ED) Activity Restrictions/Additional Instructions: Continue home medications as previously directed. Follow-up with your primary care provider as scheduled. Return to the ER for any new or worsening symptoms or any other concerns. Coding Level of Care Code ED Petroleum Transport Driver for Libra Lange
[2024-09-08 18:37] LABS: Troponin(5th) Baseline < 6 ng/L (0-10)
[2024-09-08 18:40] LABS: Alanine Aminotransferase 14 U/L (0-33); Albumin Level 4.3 g/dL (3.5-5.2); Alkaline Phosphatase 79 U/L (35-105); Anion Gap 16.8 (5-19); Aspartate Amino Transferase 17 U/L (0-32); Blood Urea Nitrogen 11 mg/dL (8-23); Calcium 9.5 mg/dL (8.5-10.5); Carbon Dioxide 23 mmol/L (22-29); Chloride 107 mmol/L (98-107); Creatinine Clr Calc Pharmacy 94.4784; Globulin 2.1 g/dL (1.3-4.6); Glomerular Filtration Rate 125.9 mL/min (90-130); Glucose 90 mg/dL (65-115); Magnesium 1.8 mg/dL (1.7-2.3); Osmolality Calculated 295 mOsm/kg (285-295); Potassium 3.8 mmol/L (3.5-5.1); Sodium 143 mmol/L (136-145); Total Bilirubin 0.2 mg/dL (0.15-1.2); Total Protein 6.4 g/dL (6.6-8.7)
[2024-09-08 18:50] VITALS: BP 149/90; PULSE 90; RESP 16; O2SAT 93
[2024-09-08 19:40] VITALS: BP 118/80; PULSE 85; RESP 16; O2SAT 96
[2024-09-08 19:44] LABS: Bilirubin Urine Negative (Negative); Blood Urine Trace (Negative); Glucose Urine UA Negative (Normal); Ketones Urine Negative (Negative); Leukocyte Esterase Urine Negative (Negative); Nitrate Urine Negative (Negative); Protein Urine Negative (Negative); Specific Gravity, Urine 1.005 (1.005-1.030); Urine Appearance Clear (CLEAR); Urine Color Yellow (Yellow); Urobilinogen Urine 0.2 mg/dL (Negative)
[2024-09-08 19:49] LABS: Add Urine Microscopic? YES; Bacteria Urine None Seen /hpf; RBC Urine 0-2 /hpf (0-2); Squamous Epithelial Cell Urine 0-5 /hpf (0-5); WBC Urine 0-5 /hpf (0-5)
[2024-09-08 20:00] VITALS: BP 130/81; PULSE 82; RESP 16; O2SAT 94
[2024-09-08 20:19] LABS: Troponin 5 2HR Delta 0.00001 ABS# (0-10)
[2024-09-08 21:23] VITALS: BP 135/90; PULSE 82; RESP 16; O2SAT 95
== END 2024-09-08 21:22 | disposition home or self-care (01) ==
PROVIDERS: Emergency Provider Student in an Organized Health Care Education/Training Program; PCP Family Medicine
DX: R42 Dizziness and giddiness (principal); I10 Essential (primary) hypertension; F17.210 Nicotine dependence, cigarettes, uncomplicated
CPT/HCPCS: 36415; 70450; 71045; 80053; 81001; 83735; 84484; 85025; 93005; 99285

== ENCOUNTER 2024-09-20 09:49 | Outpatient (CLI) | payer MEDICAID, SELFPAY ==
--- NOTE | 2024-09-20 09:54 | CT_ITS ---
WS: [id number] LDCT LUNG CANCER SCREENING HISTORY: HX OF TOBACCO USE TECHNIQUE: Axial imaging performed from the apices to 1 cm below the costophrenic angles. Coronal and sagittal reformats are submitted with axial MIP series. All CT scans at [facility] use at least one of these dose optimization techniques: automated exposure control; mA and/or kV adjustment per patient size (includes targeted exams where dose is matched to clinical indication); or iterative reconstruction. DLP: 39.42 mGy.cm DIvol: Mean CTDIvol: 0.60 (mGy) COMPARISON: None available. Diagnostic quality: Satisfactory Lungs: Moderate pulmonary hyperinflation. Centrilobular emphysema with biapical fibrosis and scarring. Calcified granuloma LEFT lower lobe. Calcified granuloma RIGHT middle lobe. No pulmonary nodule or mass. Heart: Normal size heart with no pericardial effusion.. Other findings: Heavily calcified hilar and RIGHT paratracheal lymph nodes. Mild atherosclerosis aorta. CT/CT lung screening [id number] IMPRESSION: LUNG-RADS: 1-Negative FOLLOW UP: 12 Month: Continue annual screening with LDCT OTHER FINDINGS (S MODIFIER): None.
== END 2024-09-20 09:50 | disposition home or self-care (01) ==
LOC: RAD 09:51
PROVIDERS: PCP Family Medicine; Visit Provider Family Medicine
DX: Z12.2 Encounter for screening for malignant neoplasm of respiratory organs (principal); Z87.891 Personal history of nicotine dependence; R91.8 Other nonspecific abnormal finding of lung field; J43.2 Centrilobular emphysema; J84.10 Pulmonary fibrosis, unspecified; I70.0 Atherosclerosis of aorta; I89.8 Other specified noninfective disorders of lymphatic vessels and lymph nodes
CPT/HCPCS: 71271

== ENCOUNTER 2024-09-25 12:35 | Outpatient (CLI) | payer MEDICAID, SELFPAY ==
--- NOTE | 2024-09-25 | ECG_ITS ---
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 Interpretive Statements Lung unchanged pre/post procedure; Intraprocedure shortess of breath; Symptoms resoled by discharge PROCEDURE: At the baseline, the patient's blood pressure was 123/80 with a heart rate of 96. The baseline electrocardiogram showed normal sinus rhythm with a heart rate of [address] Ts. Poor R wave progression. The patient exercised for 6 minutes on a standard [place] protocol. Patient attained a maximum heart rate of 149 beats per minute(93% of the maximum predicted heart rate) with a blood pressure at the peak exercise of 163/64 mm Hg. The EKG at the peak exercise revealed no significant changes. Patient did not have any chest pain or any significant cardiac arrhythmias with the exercise During the recovery phase, there were no new changes. Blood pressure at the end of the recovery phase was 142/72 mm Hg with a heart rate of 101 per minute. CONCLUSION: 1. Normal EKG response to treadmill exercise 2. No exercise-induced chest pain or cardiac arrhythmia 3. Slightly impaired exercise tolerance, attained a maximum of 7.0 METs Electronically Signed On 10-01-2024 06:18:19 SPINNER HYDRAULIC by Néstor Murphy M.D. [email or web address] [id number]
[2024-09-25 12:47] VITALS: BMI 19.3
[2024-09-25 13:27] VITALS: BP 154/84; PULSE 99
== END 2024-09-25 12:36 | disposition home or self-care (01) ==
LOC: CDL 12:35
PROVIDERS: PCP Family Medicine; Visit Provider Family Medicine
DX: R07.9 Chest pain, unspecified (principal)
CPT/HCPCS: 93017

== ENCOUNTER 2024-10-15 14:39 | Outpatient (CLI) | payer MEDICAID, SELFPAY ==
--- NOTE | 2024-10-15 15:00 | MM_ITS ---
WS: [id number] BILATERAL 3D TOMOSYNTHESIS DIGITAL SCREENING MAMMOGRAPHY WITH CAD CLINICAL INFORMATION: screening HISTORY: Screening mammogram. No current complaints. COMPARISON: Baseline TECHNIQUE: Bilateral CC and MLO views. FINDINGS: The breasts are composed of heterogeneous fibroglandular density tissue, which can limit the detection of small underlying mass lesions. Nodular breast tissue bilaterally. Numerous bilateral punctate calcifications and clustered calcifications. Ovoid nodule outer LEFT breast posterior depth measuring 8 mm. Recommend further evaluation with spot diagnostic views and ultrasound MM/MM [facility] tomosynthesis [id number] IMPRESSION: DENSITY:The breasts are heterogeneously dense, which may obscure small masses. BI-RADS: 0 - Incomplete: Need additional imaging evaluation FOLLOW UP: Need Additional Imaging Recommend LEFT breast diagnostic mammography and ultrasound in further evaluati on.
== END 2024-10-15 14:40 | disposition home or self-care (01) ==
PROVIDERS: PCP Family Medicine
DX: Z12.31 Encounter for screening mammogram for malignant neoplasm of breast (principal); R92.333 Mammographic heterogeneous density, bilateral breasts; R92.1 Mammographic calcification found on diagnostic imaging of breast; N63.20 Unspecified lump in the left breast, unspecified quadrant
CPT/HCPCS: 77063; 77067

== ENCOUNTER 2024-11-15 08:26 | Outpatient (CLI) | payer MEDICAID, SELFPAY ==
--- NOTE | 2024-11-15 14:00 | MM_ITS ---
WS: [id number] LEFT 3D TOMOSYNTHESIS DIGITAL MAMMOGRAPHY WITH CAD CLINICAL INFORMATION: left breast mass HISTORY: Additional views COMPARISON: 10/15/2024 TECHNIQUE: 3 views of the left breast were obtained. FINDINGS: The left breast is composed of heterogeneous fibroglandular density tissue, which can limit the detection of small underlying mass lesions. Stable clustered LEFT breast calcifications Stable nodule outer LEFT breast posterior depth measuring 8 mm. Ultrasound described below. ULTRASOUND BREAST LEFT TECHNIQUE: Ultrasound left breast focused area of concern. CLINICAL INFORMATION: left breast mass FINDINGS: Ultrasound outer quadrant LEFT breast. Incidental simple cyst at the 3 position 3 cm from the nipple measuring approximately 8 x 7 mm. Additional smaller adjacent cyst measuring 5 x 6 mm. In findings are benign. No other suspicious findings. Recommend return to annual screening mammography. MM/MM diag LT tomosynthesis [id number] IMPRESSION: DENSITY: The breasts are heterogeneously dense, which may obscure small masses. BI-RADS: 2 - Benign FOLLOW UP: 1 Year Follow-up Recommend return to annual screening mammography.
--- NOTE | 2024-11-15 14:30 | US_ITS ---
WS: [id number] LEFT 3D TOMOSYNTHESIS DIGITAL MAMMOGRAPHY WITH CAD CLINICAL INFORMATION: left breast mass HISTORY: Additional views COMPARISON: 10/15/2024 TECHNIQUE: 3 views of the left breast were obtained. FINDINGS: The left breast is composed of heterogeneous fibroglandular density tissue, which can limit the detection of small underlying mass lesions. Stable clustered LEFT breast calcifications Stable nodule outer LEFT breast posterior depth measuring 8 mm. Ultrasound described below. ULTRASOUND BREAST LEFT TECHNIQUE: Ultrasound left breast focused area of concern. CLINICAL INFORMATION: left breast mass FINDINGS: Ultrasound outer quadrant LEFT breast. Incidental simple cyst at the 3 position 3 cm from the nipple measuring approximately 8 x 7 mm. Additional smaller adjacent cyst measuring 5 x 6 mm. In findings are benign. No other suspicious findings. Recommend return to annual screening mammography. US/US breast LT complete [id number] IMPRESSION: DENSITY: The breasts are heterogeneously dense, which may obscure small masses. BI-RADS: 2 - Benign FOLLOW UP: 1 Year Follow-up Recommend return to annual screening mammography.
== END 2024-11-15 08:27 | disposition home or self-care (01) ==
PROVIDERS: PCP Family Medicine; Visit Provider Family Medicine
DX: N60.12 Diffuse cystic mastopathy of left breast (principal); R92.332 Mammographic heterogeneous density, left breast; R92.1 Mammographic calcification found on diagnostic imaging of breast
CPT/HCPCS: 76641; 77061; G0279

== ENCOUNTER 2025-03-08 22:32 | Emergency (ER) | payer MEDICAID, SELFPAY ==
[2025-03-08 22:45] VITALS: BP 132/82; PULSE 100; RESP 16; TEMP 36.7; O2SAT 98; BMI 19.7
[2025-03-09 01:05] VITALS: BP 136/89; PULSE 91; O2SAT 97
--- NOTE | 2025-03-09 01:15 | ED_ITS ---
HPI - General Adult 2 General: Chief complaint: General Medical Stated complaint: Pain in L breast down to hip Time Seen by Provider: 03/09/25 00:55 Source: patient Mode of arrival: ambulatory Limitations: no limitations History of Present Illness: Patient is a 59-year-old female presents to ED today with 2 separate complaints. Her first complaint is pain to her left breast. She states the left breast is tender to touch. She has noted when her grandson lays against her chest that she has significant discomfort to the breast. She has not noticed any obvious swelling or overlying skin changes. She did undergo mammogram and breast ultrasound just approximately 3 months ago and does have a small cyst and is undergoing routine surveillance for this. Her other complaint is pain to the left side of her lower back. She feels like pain radiates down into her leg and has some tingling to the left foot. She is not complaining of saddle anesthesia or bowel or bladder dysfunction. She is ambulatory here without difficulty or assistance. Vital signs are stable. Results of her mammogram/breast biopsy performed November 2024 listed below: FINDINGS: Ultrasound outer quadrant LEFT breast. Incidental simple cyst at the 3 position 3 cm from the nipple measuring approximately 8 x 7 mm. Additional smaller adjacent cyst measuring 5 x 6 mm. In findings are benign. No other suspicious findings. Recommend return to annual screening mammography. MM/MM diag tomosynthesis [id number] IMPRESSION: DENSITY: The breasts are heterogeneously dense, which may obscure small masses. BI-RADS: 2 - Benign FOLLOW UP: 1 Year Follow-up Onset (ago): hour(s) Severity: moderate Pain Consistency: constant Relieving factors: movement (worsens back pain) and other (palpation worsens breast pain) Exacerbating factors: none Associated symptoms: Reports no associated symptoms; Deny chest pain, dyspnea, headache(s), malaise, palpitations or syncope Treatments prior to arrival: none Related Data Previous Rx's ?Medication ?Instructions ?Recorded lisinopril 5 mg tablet 5 mg PO DAILY #30 tabs 08/27 meclizine 12.5 mg tablet 12.5 mg PO TID PRN dizziness #30 09/08/24 tabs cyclobenzaprine 10 mg tablet 10 mg PO TID #14 tabs diclofenac sodium 50 mg 50 mg PO Q12H PRN pain #20 t abs 03/09/25 tablet,delayed release methylprednisolone 4 mg tablets in See Rx Instructions PO .COMPLEX 03/09/25 a dose pack (Medrol (Matheus)) #21 ea Allergies Allergy/AdvReac Type Severity Reaction Status Date / Time Penicillins Allergy ALGY-Rash Verified 01/09/25 13:11 Review of Systems 2 Const: Denies: fever(s), chills, body aches, fatigue or malaise Card: Denies: chest pain, palpitations, irregular heart rhythm, edema, swelling of feet/ankles, lightheadedness, syncope, pre-syncope, dyspnea on exertion, orthopnea, leg pain with exertion or acrocyanosis Resp: Denies: dyspnea GI: Denies: abdominal pain : Denies: flank pain, dysuria or hematuria Musc: Reports: back pain; Denies: neck pain, extremity pain, extremity swelling, joint pain, joint swelling or joint redness Skin/Breast: Reports: breast pain (left); Denies: breast swelling or breast skin changes Neuro: Reports: sensory changes (L foot); Denies: headache(s), numbness in extremities, weakness in extremities or difficulty walking PFSH ED 2 PFSH: Medical History Seborrheic keratosis Screening for breast cancer Hypertension Gastroenteritis GERD without esophagitis Surgical History H/O tubal ligation Family History Mother Cancer Brother Diabetes Social History Smoking and tobacco/nicotine status: current every day tobacco/nicotine user cigarettes Physical Exam 2 Const: COMMON NORMALS: no acute distress, average body habitus, no limitations, healthy appearing, alert and well nourished GENERAL APPEARANCE: cooperative Chest: COMMONS NORMALS: normal inspection of the chest and normal palpation of entire chest wall OTHER: dense breast tissue; she is seemingly tender to lower outer quadrant L breast Resp: COMMON NORMALS: normal respiratory effort and clear to auscultation bilaterally AUSCULTATION: clear to auscultation bilaterally Cardio: COMMON NORMALS: regular rate and regular rhythm RATE: regular rate RHYTHM: regular rhythm GI: COMMON NORMALS: Normal to inspection, nondistended, normoactive bowel sounds present, Soft to palpation, non-tender, No hepatosplenomegaly present and no masses PALPATION: Yes Soft to palpation and Yes No hepatosplenomegaly present : COMMON NORMALS: Yes no CVA tenderness BLADDER/KIDNEY EXAM: Yes no CVA tenderness Back/Pelvis: COMMON NORMALS: no CVA tenderness, thoracic and lumbar spine normal to inspection, no thoracic nor lumbar tenderness and thoraco-lumbar ROM normal LUMBAR SPINE/LOWER BACK: No lumbar spinal tenderness, Yes paraspinal muscle tenderness Lumbar paraspinal muscle tenderness: left and No mass present PELVIS: Yes buttocks normal and Yes sciatic notch tenderness on the left S ACRUM: no tenderness COCCYX: no tenderness BACK IMAGE (FEMALE): 1. TTP Extremity: COMMON NORMALS: normal to inspection, full ROM, capillary refill normal, no clubbing, cyanosis or edema, no calf tenderness and no pedal edema GENERAL: Yes normal exam except as noted Neuro: COMMON NORMALS: moves all extremities, no focal motor deficits, no sensory deficits noted and gait normal SENSORIUM/ORIENTATION: Yes alert Skin: COMMON NORMALS: no rashes or lesions noted GENERAL SKIN EXAM: no rashes or lesions noted Course 2 Vital Signs: Vital signs: Vital Signs Temperature 98.0 F 03/08/25 22:45 Pulse Rate 91 03/09/25 01:05 Respiratory Rate 16 03/08/25 22:45 Blood Pressure 136/89 03/09/25 01:05 Pulse Oximetry 97 03/09/25 01:05 Oxygen Delivery Me thod Room Air 03/08/25 22:45 MDM - General Adult Medical Decision Making Patient feels much better after medications given here. Vital signs are stable. Blood work is unremarkable. She just underwent mammogram and breast ultrasound 3 months ago. I do not feel repeat breast ultrasound is needed today. She can follow-up with her primary care and if symptoms persist, this can be ordered as an outpatient. No evidence for breast abscess. Symptoms to her back most likely secondary to a lumbosacral radiculopathy. She will be treated with anti- inflammatories, steroids, and muscle relaxers as well as other conservative therapies. I would like her to follow-up with primary care this week. Return to ED precautions discussed. Medical Records I reviewed the patient's medical records. Lab Data I reviewed the patient's lab results. 03/09/25 01:55 03/09/25 01:55 Laboratory Results WBC 6.95 10^3/uL (3.29-11.43) 03/09/25 01:55 RBC 4.52 10^6/uL (3.85-5.65) 03/09/25 01:55 Hgb 13.60 g/dL (11.27-16.99) 03/09/25 01:55 Hct 41.3 % (36-47) 03/09/25 01:55 MCV 91.4 fl (85-98) 03/09/25 01:55 MCH 30.1 pg (27-33) 03/09/25 01:55 MCHC 32.9 g/dL (30-55) 03/09/25 01:55 RDW 13.1 % (12.1-15.1) 03/09/25 01:55 Plt Count 253 10^3/cmm (157-399) 03/09/25 01:55 MPV 9.5 fL (7.4-10.4) 03/09/25 01:55 Neut % (Auto) 55.1 % 03/09/25 01:55 Lymph % (Auto) 35.3 % 03/09/25 01:55 [place] % (Auto) 5.9 % 03/09/25 01:55 Eos % (Auto) 2.2 % 03/09/25 01:55 Baso % (Auto) 1.2 % 03/09/25 01:55 Neut # (Auto) 3.84 10^3/uL (1.8-7.7) 03/09/25 01:55 Lymph # (Auto) 2.5 10^3/uL (0.8-4.8) 03/09/25 01:55 [place] # (Auto) 0.4 10^3/uL (0.2-0.9) 03/09/25 01:55 Eos # (Auto) 0.2 10^3/uL (0.0-0.8) 03/09/25 01:55 Baso # (Auto) 0.1 10^3/uL (0.0-0.1) 03/09/25 01:55 Nucleated RBC % (auto) 0 % 03/09/25 01:55 Nucleated RBCs # 0.0 /100WBC 03/09/25 01:55 No radiology studies performed this visit Discharge Plan Discharge Patient Disposition: Home Clinical Impression: Breast pain, left, Left lumbosacral radiculopathy Condition: Stable Prescriptions: New cyclobenzaprine 10 mg tablet 10 mg PO TID Qty: 14 0RF diclofenac sodium 50 mg tablet,delayed release (DR/EC) 50 mg PO Q12H PRN (Reason: pain) Qty: 20 0RF methylprednisolone [Medrol (Matheus)] 4 mg tablets,dose pack See Rx Instructions .ROUTE .COMPLEX Qty: 21 0RF Rx Instructions: orally per package directions No Action lisinopril 5 mg tablet 5 mg PO DAILY Qty: 30 0RF meclizine 12.5 mg tablet 12.5 mg PO TID PRN (Reason: dizziness) Qty: 30 0RF Discharge Orders: Discharge ED (Routine); Ordered 03/09/25 Ordered By: Martina Guerra Referrals: Sandy Dey MD [Primary Care Provider, Family Practice] Patient Instructions: Patient Portal & [facility] Instructions Activity Restrictions/Additional Instructions: As we discussed, I would like you to follow-up with your primary care provider next week to discuss the tenderness to your breast and to reevaluate your back pain. Will place you on steroids, anti-inflammatories, muscle relaxers to help with your back pain over the next several days. Avoid lifting. You may also use lidocaine patches and topical therapies as well as ice and heat. Print Language: Moroccan Coding Level of Care Code ED Community Health Agent for Libra Lange
[2025-03-09] MEDS: orphenadrine 30 mg/mL Inj 2 mL 60 MG IVP (01:27)
[2025-03-09 02:00] LABS: Hematocrit 41.3 % (36-47); Hemoglobin 13.60 g/dL (11.27-16.99); Mean Corpuscular HGB Conc 32.9 g/dL (30-55); Mean Corpuscular Hemoglobin 30.1 pg (27-33); Mean Corpuscular Volume 91.4 fl (85-98); Nucleated Red Blood Cells % 0 %; Platelet Count 253 10^3/cmm (157-399); Red Blood Count 4.52 10^6/uL (3.85-5.65); White Blood Count 6.95 10^3/uL (3.29-11.43)
--- NOTE | 2025-03-09 02:07 | ECG_ITS ---
[facility] Test Date: 2025-03-09 Pat Name: Mary Hays Department: Room: Gender: Female Material Disposition Inspector: : 1965 Requested By: Martina Guerra Order Number: [id number] Javier MD: Vinh Montana M.D. Measurements Intervals [place] Rate: 76 P: 70 ME: 155 QRS: 78 QRSD: 76 T: 70 QT: 385 QTc: 435 Interpretive Statements SINUS RHYTHM MINIMAL VOLTAGE CRITERIA FOR LVH, CONSIDER NORMAL VARIANT [MEETS CRITERIA IN ONE OF: R(aVL), S(V1), R(V5), R(V5/V6)+S(V1)] Compared to ECG 09/08/2024 18:25:41 Myocardial infarct finding no longer present Electronically Signed On 03-09-2025 08:42:40 CDT by Vinh Montana M.D. [email or web address] [email or web address]
[2025-03-09 02:21] LABS: Alanine Aminotransferase 6 U/L (0-33); Albumin Level 3.9 g/dL (3.5-5.2); Alkaline Phosphatase 76 U/L (35-105); Anion Gap 15.7 (5-19); Aspartate Amino Transferase 10 U/L (0-32); Blood Urea Nitrogen 19 mg/dL (8-23); Calcium 9.2 mg/dL (8.5-10.5); Carbon Dioxide 24 mmol/L (22-29); Chloride 104 mmol/L (98-107); Creatinine Clr Calc Pharmacy 78.1610; Globulin 2.5 g/dL (1.3-4.6); Glucose 87 mg/dL (65-115); Osmolality Calculated 292 mOsm/kg (285-295); Potassium 3.7 mmol/L (3.5-5.1); Sodium 140 mmol/L (136-145); Total Protein 6.4 g/dL (6.6-8.7)
[2025-03-09 02:40] VITALS: BP 137/81; PULSE 74; O2SAT 94
== END 2025-03-09 02:24 | disposition home or self-care (01) ==
PROVIDERS: Emergency Provider Physician Assistant; PCP Family Medicine
DX: N64.4 Mastodynia (principal); M54.17 Radiculopathy, lumbosacral region; F17.210 Nicotine dependence, cigarettes, uncomplicated; I10 Essential (primary) hypertension
CPT/HCPCS: 36415; 80053; 85025; 93005; 96374; 96375; 99284; J1100; J1885; J2360

== ENCOUNTER 2025-05-22 10:03 | Outpatient (CLI) | payer OTHER, SELFPAY ==
--- NOTE | 2025-05-22 10:16 | XR_ITS ---
WS: [id number] Lumbar spine, 3 views, 05/22/2025 Clinical Data: OA Comparison: Lumbar spine, 03/17/2018 Findings: No compression fractures or subluxation is seen. No disc space narrowing is seen. The transverse processes and SI joints are normal. There is a levoscoliosis. There is a probable gallstone. The abdominal aorta shows calcification but no aneurysm. XR/XR lumbar spine 2-3V* [id number] Impression: 1. Mild levoscoliosis. 2. Cholelithiasis.
== END 2025-05-22 10:04 | disposition home or self-care (01) ==
PROVIDERS: PCP Family Medicine; Visit Provider Family Medicine
DX: Z02.71 Encounter for disability determination (principal); K80.20 Calculus of gallbladder without cholecystitis without obstruction; M41.86 Other forms of scoliosis, lumbar region
CPT/HCPCS: 72100